=== PATIENT | female | born 1960 | race Caucasian/White ===

== ENCOUNTER 2017-07-17 05:25 | Inpatient (IN) | payer BC ==
[2017-07-15 17:54] VITALS: Ht 160 cm; Wt 60.0 kg
--- NOTE | 2017-07-16 17:39 | RADRPT ---
PROCEDURE: XR Chest. CLINICAL INDICATION: Check PICC line position. TECHNIQUE: Single frontal view. COMPARISON: No prior study is available for comparison. FINDINGS: There is a right arm PICC line with the tip in the cavoatrial junction. There is mild right basilar atelectasis. The lungs are otherwise clear. The heart size is normal. There is no pleural effusion or pneumothorax. Surgical clips are present overlying the lower neck. There is prior anterior fusion with plate and s crews in the lower cervical spine. IMPRESSION: 1. Right arm PICC line tip in satisfactory position. 2. Mild right basilar atelectasis. 3. Prior neck surgery. 4. Otherwise normal chest radiograph. RPTAT: QQ .Asaf Lea MD, MD Date Time Electronically viewed and signed by .Asaf Lea MD, MD on 07/16/2017 17:39 .R/
--- NOTE | 2017-07-16 19:05 | RADRPT ---
PROCEDURE: US guidance for PICC line CLINICAL INDICATION: PICC line placement TECHNIQUE: Multiple real-time images were acquired of the patient's arm utilizing a high resolutio n transducer. This was performed by the PICC line nurse for venous access. COMPARISON: None FINDINGS: Ultrasound guidance for PICC line placement. IMPRESSION: Ultrasound guidance for PICC line placement. RPTAT: AA .Beau Tejada MD, MD Date Time Electronically viewed and signed by .Beau Tejada MD, on 07/16/2017 19:05 .S/
[2017-07-17] VITALS (25 sets, daily range): BP systolic 97–139; BP diastolic 50–77; PULSE 55–88; RESP 12–20
[~2017-07-17] VITALS: Ht 160 cm; Wt 60.0 kg
[~2017-07-17 05:25] MED LIST: BIOT5000 PO; CYAN500T46 PO; DIAZ5TAB4 PO; HYDR-902 PO; LIDOCAINE 1% (MPF) 5 ML VIAL SC ONE; OMEG-144 PO; ONDA4TAB8 PO; PANT40TA3 PO; TEMA15CA6 PO; UBID100C24 PO; VIT1TABL46 PO
[2017-07-17] MEDS ORDERED: LACTATED RINGER'S 1,000 ML IV* SCH ×2 (06:00)
[2017-07-17] MEDS ORDERED: VANCOMYCIN 1 GM in NS 250 ML IVPB SCH (06:00)
[2017-07-17 06:03] LABS: BASOPHILS % 0.3 % (0.0-2.0); EOSINOPHILS # 0.7 10^3/ul (0.0-0.5); EOSINOPHILS % 10.6 % (0.0-7.0); HEMATOCRIT 28.4 % (37.0-47.0); HEMOGLOBIN 8.7 g/dl (12.0-16.0); LYMPHOCYTES # 2.1 10^3/ul (0.8-2.9); LYMPHOCYTES % 31.5 % (15.0-51.0); MEAN CORPUSCULAR HEMOGLOBIN 25.7 pg (29.0-33.0); MEAN CORPUSCULAR HGB CONC 30.6 g/dl (32.0-37.0); MEAN CORPUSCULAR VOLUME 83.8 fl (82.0-101.0); MEAN PLATELET VOLUME 9.4 fl (7.4-10.4); MONOCYTE # 0.8 10^3/ul (0.3-0.9); MONOCYTES % 12.4 % (0.0-11.0); NEUTROPHIL # 2.9 10^3/ul (1.6-7.5); NEUTROPHILS % 44.9 % (39.0-77.0); PLATELET COUNT 289 10^3/UL (140-415); RED BLOOD COUNT 3.39 10^6/ul (4.20-5.40); RED CELL DISTRIBUTION WIDTH 13.5 % (11.5-14.5); WHITE BLOOD COUNT 6.5 10^3/ul (4.8-10.8)
[2017-07-17 06:27] LABS: HOLD TRANSMISSIONS 1
[2017-07-17] MEDS ORDERED: GELATIN SIZE 100 SPONGE ONE (06:30)
[2017-07-17] MEDS ORDERED: BUPIVACAINE 0.25% (MPF) 30 ML INJ ONE (06:30)
[2017-07-17] MEDS ORDERED: POLYMYXIN/BACITRACIN 1L IRRIG ONE (06:30)
[2017-07-17] MEDS ORDERED: THROMBIN 5000 UNIT VIAL ONE (06:30)
[2017-07-17 06:34] LABS: INR 1.02; PROTIME 13.4 Sec (12.2-14.2)
[2017-07-17 06:42] LABS: ALBUMIN 3.9 g/dl (3.3-4.9); ALBUMIN/GLOBULIN RATIO 1.14; TOTAL PROTEIN 7.3 g/dl (6.1-8.1)
[2017-07-17 06:44] LABS: CALCIUM 9.3 mg/dl (8.4-10.2); CREATININE 1.04 mg/dl (0.44-1.00); POTASSIUM 4.2 mmol/L (3.5-5.1)
[2017-07-17 06:44] LABS: ADD UMIC YES; UR ASCORBIC ACID NEGATIVE (NEGATIVE); UR BACTERIA FEW /HPF (NONE SEEN); UR BILIRUBIN (Dip) NEGATIVE (NEGATIVE); UR BLOOD (Dip) NEGATIVE (NEGATIVE); UR CLARITY CLOUDY (CLEAR); UR COLOR YELLOW (YELLOW); UR GLUCOSE (Dip) NEGATIVE (NEGATIVE); UR KETONES (Dip) NEGATIVE (NEGATIVE); UR LEUKOCYTE ESTERASE (Dip) 2+ Leu/ul (NEGATIVE); UR MUCUS FEW /HPF (NONE SEEN); UR NITRITE (Dip) NEGATIVE (NEGATIVE); UR RBC 10 /HPF (0-5); UR SPECIFIC GRAVITY (Dip) 1.023 (1.003-1.030); UR SQUAMOUS EPITHELIAL CELL MODERATE /HPF (FEW); UR TOTAL PROTEIN (Dip) NEGATIVE (NEGATIVE); UR UROBILINOGEN (Dip) NEGATIVE (NEGATIVE)
--- NOTE | 2017-07-17 06:53 | HPN ---
Date/Time of Note Date/Time of Note DATE: 07/17/17 TIME: 06:53 Interval H&P Admission Note Pt. seen H&P reviewed: No system changes MARIANA KERN MD Jul 17, 2017 06:53
[2017-07-17 06:55] LABS: PARTIAL THROMBOPLASTIN TIME 39.4 Sec (25.0-35.0)
[2017-07-17] MEDS ORDERED: MIDAZOLAM 1 MG/ML 2 ML INJ ONE (07:09)
[2017-07-17 08:24] LABS: ADD UMIC NO; UR ASCORBIC ACID NEGATIVE (NEGATIVE); UR BILIRUBIN (Dip) NEGATIVE (NEGATIVE); UR BLOOD (Dip) NEGATIVE (NEGATIVE); UR CLARITY CLEAR (CLEAR); UR COLOR STRAW (YELLOW); UR GLUCOSE (Dip) NEGATIVE (NEGATIVE); UR KETONES (Dip) NEGATIVE (NEGATIVE); UR LEUKOCYTE ESTERASE (Dip) NEGATIVE Leu/ul (NEGATIVE); UR NITRITE (Dip) NEGATIVE (NEGATIVE); UR SPECIFIC GRAVITY (Dip) 1.005 (1.003-1.030); UR TOTAL PROTEIN (Dip) NEGATIVE (NEGATIVE); UR UROBILINOGEN (Dip) NEGATIVE (NEGATIVE)
[2017-07-17] MEDS ORDERED: hydrALAzine 20 MG INJ ONE (08:29)
--- NOTE | 2017-07-17 08:41 | RADRPT ---
PROCEDURE: Lumbar spine x-ray and fluoroscopy CLINICAL INDICATION: Lumbar spine surgical procedure TECHNIQUE: Single cross-table lateral intraoperative x-ray view of the lumbar spine is available for review. Site of service: Inpatient Number of images: 1 Fluoroscopy time: 0 COMPARISON: None available FINDINGS: Surgical markers are seen at the level of T11 and T12 spinous processes. There is anterolisthesis of L4 on L5. Moderate disc height loss is seen at L4-L5 and L5-S1. Lumbar lordosis is relatively prese rved. The vertebral body heights are maintained. Surgical clips are seen in the upper abdomen and pe lvis. IMPRESSION: 1. Intraoperative x-rays for localization during lumbar spinal surgical procedure. RPTAT: BB .Adams Riggs MD, Date Time Electronically viewed and signed by .Adams Riggs MD, on 07/17/2017 08:40 .O/
--- NOTE | 2017-07-17 08:43 | RADRPT ---
PROCEDURE: Lumbar spine x-ray CLINICAL INDICATION: Lumbar spine surgical procedure TECHNIQUE: Single cross-table lateral intraoperative x-ray view of the lumbar spine is available for review. Site of service: Inpatient Number of images: 1 Fluoroscopy time: 0 COMPARISON: 07/17/2017 at 07:52 a.m. FINDINGS: Surgical marker is identified at the level of L1-L2 disc. A second surgical marker is seen at the massey perior aspect of the L2. There is anterolisthesis of L4 on L5. Moderate disc height loss is seen at L4-L5 and L5-S1. Lumbar lordosis is relatively preserved. The vertebral body heights are maintained. Surgical clips are seen in the upper abdomen and pelvis. IMPRESSION: 1. Intraoperative x-rays for localization during lumbar spinal surgical procedure. RPTAT: BB .Adams Riggs MD, Date Time Electronically viewed and signed by .Adams Riggs MD, on 07/17/2017 08:43 .O/
--- NOTE | 2017-07-17 08:46 | RADRPT ---
PROCEDURE: Lumbar spine x-ray CLINICAL INDICATION: Lumbar spine surgical procedure TECHNIQUE: Single cross-table lateral intraoperative x-ray view of the lumbar spine is available for review. Site of service: Inpatient Number of images: 1 Fluoroscopy time: 0 COMPARISON: 07/17/2017 at 7:40 am FINDINGS: Surgical marker is identified at the level of posterior L1-L2 disc There is anterolisthesis of L4 o n L5. Moderate disc height loss is seen at L4-L5 and L5-S1. Lumbar lordosis is relatively preserved. The vertebral body heights are maintained. IMPRESSION: 1. Intraoperative x-rays for localization during lumbar spinal surgical procedure. RPTAT: BB .Adams Riggs MD, Date Time Electronically viewed and signed by .Adams Riggs MD, on 07/17/2017 08:46 .O/
[2017-07-17] MEDS ORDERED: PROPOFOL 20 ML ONE (09:21)
[2017-07-17] MEDS ORDERED: ROCURONIUM 50 MG INJ ONE (09:21)
[2017-07-17] MEDS ORDERED: LIDOCAINE 2% (SDV) 5 ML INJ ONE (09:21)
[2017-07-17] MEDS ORDERED: NEOSTIGMINE 3 MG/3 ML SYRINGE ONE (09:22)
[2017-07-17] MEDS ORDERED: GLYCOPYRROLATE 0.4 MG INJ ONE (09:22)
[2017-07-17] MEDS ORDERED: ONDANSETRON 4 MG INJ ONE (09:27)
[2017-07-17] MEDS ORDERED: HYDROmorphONE (0.2 MG/ML) 10ML SYG IV ONE (09:54)
[2017-07-17] MEDS ORDERED: FENTAnyl 50 MCG/ML VIAL ONE (09:54)
[2017-07-17] MEDS ORDERED: ACETAMINOPHEN 325 MG TAB PO PRN (10:00)
[2017-07-17] MEDS ORDERED: HYDROmorphONE (0.2 MG/ML) 10ML SYG IV PRN ×2 (10:00)
[2017-07-17] MEDS ORDERED: AL HYDROX/MG HYDROX/SIMETH 30 ML CUP PO PRN (10:00)
[2017-07-17] MEDS ORDERED: FENTAnyl 50 MCG/ML VIAL IV PRN ×2 (10:00)
[2017-07-17] MEDS ORDERED: NALOXONE (0.4 MG/ML) INJ IV PRN (10:00)
[2017-07-17] MEDS ORDERED: MIDAZOLAM 1 MG/ML 2 ML INJ IV PRN (10:00)
[2017-07-17] MEDS ORDERED: DIPHENHYDRAMINE 50 MG CAP PO PRN (10:00)
[2017-07-17] MEDS ORDERED: PROCHLORPERAZINE 10 MG TAB PO PRN (10:00)
[2017-07-17] MEDS ORDERED: ONDANSETRON 4 MG INJ IV PRN ×2 (10:00)
[2017-07-17] MEDS ORDERED: DIPHENHYDRAMINE 50 MG INJ IV PRN (10:00)
[2017-07-17] MEDS ORDERED: DIAZEPAM 5 MG/ML SYG IM PRN (10:00)
[2017-07-17] MEDS ORDERED: NACL 0.9% 3 ML SYG IV SCH (10:00)
[2017-07-17] MEDS ORDERED: LABETALOL HCL 20MG INJ IV PRN (10:00)
[2017-07-17] MEDS ORDERED: BETHANECHOL 25 MG TAB PO PRN (10:00)
[2017-07-17] MEDS ORDERED: MEPERIDINE 25 MG INJ IV PRN (10:00)
[2017-07-17] MEDS ORDERED: hydrALAzine 20 MG INJ IV PRN (10:00)
[2017-07-17] MEDS ORDERED: TRIMETHOBENZAMIDE 100 MG/ML VIAL IM PRN (10:00)
[2017-07-17] MEDS ORDERED: METOCLOPRAMIDE 10 MG INJ IV PRN (10:00)
[2017-07-17] MEDS ORDERED: DIPHENHYDRAMINE 50 MG INJ ONE (10:07)
--- NOTE | 2017-07-17 10:14 | SIPON ---
Date/Time of Note Date/Time of Note DATE: 07/17/17 TIME: 10:10 Operative Report Preoperative Diagnosis HNP L1-2 left Postoperative Diagnosis same Operation/Procedure Performed Left hemilaminotomy L1 Microdiscectomy L1-2 left Repair of iatrogenic dural tear L1-2 left Medial facetectomy and foraminotomy L1-2 left Cosmetic wound closure (3cm) Lateral lumbar radiographs (3) Inraoperative nerve monitoring (90min) Surgeon see signature line nutritional assistant Andre Fair MD Anesthesia: general Estimated blood loss: 10 - 50 ml's Transfusion Required none Specimen HNP L1-2 left Grafts/Implants none Complications none MARIANA KERN MD Jul 17, 2017 10:14
--- NOTE | 2017-07-17 10:59 | OPR ---
DATE OF OPERATION: 07/17/2017 PREOPERATIVE DIAGNOSIS: Herniated disk L1 to 2 on the left with inferior extruded disk fragments. POSTOPERATIVE DIAGNOSIS: Herniated disk L1 to 2 on the left with inferior extruded disk fragments. OPERATION AND PROCEDURES: 1. Left hemilaminotomy at L1. 2. Microdiskectomy at L1 to 2 on the left. 3. Medial facetectomy and foraminotomy, L1 to 2 on the left. 4. Repair of iatrogenic dural tear L1 to 2 on the left. 5. Cosmetic wound closure (3 cm). 6. Lateral localized lumbar radiographs (3). 7. Intraoperative nerve monitoring (90 minutes) SURGEON: Yeyo Nelson MD. INTEGRATED MARKETING MANAGER: Tk Fair MD. ANESTHESIA: Endotracheal. ANESTHESIOLOGIST: Estevan Jones MD. ESTIMATED BLOOD LOSS: 30 mL, none replaced. DRAINS: Two medium Hemovac drains employed. COMPLICATIONS: None. PERTINENT HISTORY AND PHYSICAL: This is a 56-year-old female with severe back and left leg pain which has been unrelieved by conservative management. She has undergone a number of diagnostic studies including an MRI of the lumbar spine, which demonstrated herniation of the L1 to 2 disks on the left with inferior extruded disk fragments. Treatment options were discussed with the patient, she elected to proceed with surgery. OPERATIVE FINDINGS AT SURGERY: A small left paracentral herniation of the L1 to 2 disk was confirmed with some disk material below the level of disk space. Baseline intraoperative nerve monitoring revealed a decrease in the L2 potentials bilaterally of 40%. These returned to normal by the end of the surgery. OPERATIVE PROCEDURE: With the patient in supine position after satisfactory induction of general endotracheal anesthesia by Dr. Jones, the patient was turned to the prone kneeling position on the [place] frame. All pressure points were carefully padded. The back was prepped and draped in usual sterile fashion. Athrombic pumps were applied to the legs below the knees to prevent venous stasis during and after the procedure. An indwelling Mack catheter was also placed preoperatively to facilitate bladder drainage during and after the procedure. Two spinal needles were placed next to what was felt to be the L1 and L2 spinous processes, lateral roentgenogram was taken which confirmed anatomic localization. A 3 cm incision then carried out midline over the spinous process of L1 after skin was infiltrated with 0.25% Marcaine without epinephrine for postoperative analgesia. Superficial retractors were placed and hemostasis secured with electrocautery. Throughout the procedure, copious amounts of antibiotic irrigating solution were used to periodically irrigate the wound. The fascia was incised in midline with a hot knife and unilateral subperiosteal dissection carried out at L1 to 2 on the left. Deep retractors were placed and deep hemostasis secured with electrocautery. A second intraoperative radiograph was taken with deep retractor at what was felt to be the L1 to 2 interspace and this was confirmed with second x-ray. A left hemilaminotomy at L1 was then carried out using Leksell rongeur, Kerrison punches and curettes. Ligamentum flavum was excised with sharp dissection. The operating microscope was moved into place. A medial facetectomy and foraminotomy was accomplished using small hand osteotome, mallet, Kerrison punches and curettes. The L2 root was then mobilized medially and protected with D'Errico nerve retractor using microdissection technique. This revealed some disk material below the disk space, which was extracted with pituitary rongeurs and sent to laboratory for pathologic study. A third x-ray was taken with a Alcova instrument at what was felt to be the L1 to 2 disk space level which was confirmed on the x-ray. The epidural hemostasis was secured with bipolar electrocautery at low setting. While the floor of the canal was being explored with a Guanaco dissector, a small tear in the lateral margin of the L2 root sleeve was identified and repaired with a small pledget of Duragen Plus and Adherus dural sealant. A watertight closure was obtained. The wound was then closed in layers over 2 medium Hemovac drains, one below the fascia and one above the fascia using #1 Vicryl [id number] approximating sutures in deep paralumbar musculature and deep fascia of the back, 2-0 Vicryl subcutaneous approximating sutures in subQ tissue and a 4-0 Vicryl subcuticular cosmetic closing suture on the skin. The wound was copiously irrigated with antibacterial irrigating solution prior to wound closure. Dermabond and sterile compressive dressings were applied. Patient having tolerated procedure well, was then turned to the supine position onto her bed and extubated by Dr. Jones. She was transported to the recovery room in satisfactory condition. At the conclusion of the procedure, sponge, instrument and needle counts were all correct. NEED FOR CLAY DRY PRESS HELPER: During this spinal surgical procedure, my assignment desk assistant was used to retract and protect the spinal nerves and dural sac. My assignment desk assistant also employed the suction catheters to evacuate blood from the surgical field to improve visualization of the neural structures. The assignment desk assistant was medically necessary to facilitate the completion of the surgery in a safe and expeditious manner. [facility] regulations, as well as hospital bylaws, preclude the use of non-licensed health care personnel such as operating room technicians, to perform these functions. Throughout the procedure, nerve monitoring was carried out by [employer] including EMG, SSEP and MEP monitoring of the L2, L3 , L4, L5 and S1 nerve roots bilaterally along with spinal cord potentials. These were interpreted by neurologist employed by [employer] system. Dictated By: YEYO NELSON MD TM/NTS Conf#: [id number] DID#: [id number] CC: TK FAIR MD; SHANNA URRUTIA MD;*EndCC* MTDD
[2017-07-17] MEDS ORDERED: HYDROmorphONE 1 MG/ML SYG IM STA (11:48)
[2017-07-17] MEDS ORDERED: HYDROmorphONE 1 MG/ML SYG IV STA (12:00)
[2017-07-17] MEDS ORDERED: HYDROmorphONE 2 MG/ML SYG IV PRN (12:00)
[2017-07-17] MEDS: DEXTROSE 5%-0.45% NACL 1,000 ML IV SCH ×2 (12:11→19:56)
[2017-07-17] MEDS: HYDROmorphONE 0.2 MG/ML PCA IV SCH ×2 (12:36→20:21)
[2017-07-17] MEDS ORDERED: NON-FORMULARY/PATIENT OWN MED (Temazepam* (Restoril*) 15 MG) PO PRN (15:00)
[2017-07-17] MEDS ORDERED: DIAZEPAM 5 MG TAB PO PRN (15:00)
[2017-07-17] MEDS: DIAZEPAM 5 MG TAB PO PRN ×2 (16:37→20:46)
[2017-07-17] MEDS: CEPASTAT LOZENGE MT PRN (16:38)
[2017-07-17] MEDS: VANCOMYCIN 1 GM (PMX) 250 ML IVPB SCH (17:26)
[2017-07-17] MEDS ORDERED: SOD CHLORIDE 0.9% 100 ML ONE (17:50)
--- NOTE | 2017-07-17 20:11 | CONS ---
DATE OF ADMISSION: 07/17/2017 DATE OF CONSULTATION: POSTOPERATIVE INTERNAL MEDICINE CONSULTATION The patient had surgery with Dr. Yeyo Kern 07/17/2017. Consultation requested by Dr. Yeyo Kern for medical evaluation and followup of a 56-year-old woman who just underwent lumbar spine surgery with some medical issues. Thank you, Dr. Kern, for allowing us to participate in the care of this patient. HISTORY OF PRESENT ILLNESS: Annel iTan is a 56-year-old woman. This was her third lumbar spine surgery. She has also had a cervical spine surgery. This particular surgery was for a microdiskectomy, hemilaminectomy and some generalized cleaning at different levels. Hopefully, this will correct many of her issues with her back which have been chronic and long-standing. 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 The patient apparently was quite ill at that particular point in time. She has also had a hysterectomy, oophorectomy and 2 C-sections. Despite it all, however, the patient has been managing relatively well. MEDICATIONS: She is currently taking the following medications: 1. Restoril 15 mg at bedtime. 2. Valium 5 mg p.o. q.8 h. p.r.n. 3. Randalia 10/325 one to 2 every 4 hours as needed. 4. Zofran 4 mg 1 q.8 h. p.r.n. as needed. 5. Protonix 40 mg 1 p.o. daily. ALLERGIES: INCLUDE: 1. SOME MIGRAINE MEDICATIONS. 2. PENICILLIN. 3. IN ADDITION TO IMITREX AND QUETIAPINE. Anyway, those are listed above. SOCIAL HISTORY: The patient is , has 2 children. She does not smoke or drink alcohol other than social basis. Otherwise currently disabled due to her pain. FAMILY HISTORY: Both parents are still living. There is, however, a family history of diabetes, heart, cancer and hypertension. REVIEW OF SYSTEMS HEENT: Does get periodic headaches, both tension and migraine. CARDIORESPIRATORY: Denies any significant chest pain. GASTROINTESTINAL: No melena or hematemesis. GENITOURINARY: No urgency, frequency. GYNECOLOGIC: Postmenopause secondary to total hysterectomy and oophorectomy. MUSCULOSKELETAL: Positive for persistent back pain. NEUROPSYCHIATRIC: Unremarkable. VITAL SIGNS: Postop revealed the following at the time of my examination: Blood pressure 116/58, pulse 82, temperature 97.6, O2 sat 99% with nasal cannula at 2 liters. PHYSICAL EXAMINATION: HEENT: No obvious gross abnormalities. NECK: Revealed scar from prior cervical spine surgery. Pulses were physiologic. LUNGS: Clear. HEART: Revealed a regular rhythm. ABDOMEN: Soft, large scar was noted from her prior small bowel resection and cholecystectomy when she was septic. Bowel sounds were noted and no tenderness being noted. EXTREMITIES: Could not be fully examined due to the patient having coverings over her feet and legs. IMPRESSION: 1. Status post multiple lumbar spine surgeries, most recent being today. 2. Chronic pain syndrome secondary to her back problems. 3. Status post hysterectomy and salpingo-oophorectomy. 4. History of small bowel resection secondary to sepsis and gangrene. 5. General stable health. DISCUSSION: Plan is to follow her along with you. I have taken the liberty to reorder her preop medications that need to be continued while she is in the hospital. The rest have been held and hopefully, the patient will have an uneventful recovery from this particular surgery. Thank you again, Dr. Kern, for allowing us to participate in the care of this patient. We will follow her along with you during her stay at [facility]. Dictated By: SHANNA URRUTIA MD SS/NTS Conf#: [id number] DID#: [id number] CC: YEYO KERN MD;*EndCC* MTDD
[2017-07-17] MEDS: RANITIDINE 150 MG TAB PO SCH (21:00)
[2017-07-17] MEDS: HYDROmorphONE 2 MG/ML SYG IV PRN (21:13)
[2017-07-17] MEDS: ZOLPIDEM 5 MG TAB PO PRN (22:23)
[2017-07-18] MEDS: DEXTROSE 5%-0.45% NACL 1,000 ML IV SCH ×3 (00:02→15:56)
[2017-07-18 00:15] VITALS: BP 130/71; RESP 19
[2017-07-18] MEDS: HYDROmorphONE 2 MG/ML SYG IV PRN ×7 (00:15→23:24)
[2017-07-18] MEDS: DIAZEPAM 5 MG TAB PO PRN ×5 (02:50→22:25)
[2017-07-18] MEDS: HYDROmorphONE 0.2 MG/ML PCA IV SCH ×3 (03:47→18:15)
[2017-07-18] MEDS: VANCOMYCIN 1 GM (PMX) 250 ML IVPB SCH (05:09)
[2017-07-18] MEDS: PANTOPRAZOLE (EC) 40 MG TAB PO SCH (05:09)
[2017-07-18 05:46] LABS: CALCIUM 8.7 mg/dl (8.4-10.2); CREATININE 0.76 mg/dl (0.44-1.00); POTASSIUM 3.7 mmol/L (3.5-5.1)
--- NOTE | 2017-07-18 07:09 | PN ---
Date/Time of Note Date/Time of Note DATE: 07/18/17 TIME: 07:07 Assessment/Plan Lines/Catheters IV Catheter Type (from Nrsg): PICC Line Mack in Place (from Nrsg): Yes Subjective 24 Hr Interval Summary Patient is postop day #1 following a microdiscectomy at L1-2 on the left. She still complaining of a great deal of pain. Her postoperative analgesics are being managed by Dr. Frank Rutledge. Her a.m. lab work is unremarkable. Neurovascular structures were intact distally. Her Hemovac had minimal drainage and was discontinued. The wound was clean and dry and was redressed. She will be mobilized as tolerated by physical therapy. Exam/Review of Systems Vital Signs Vitals Vital Signs Date Time Temp Pulse Resp B/P Pulse Ox O2 Delivery O2 Flow Rate FiO2 07/18/17 05:53 18 07/18/17 00:15 98.5 82 130/71 100 07/17/17 19:30 Nasal Cannula 2.0 Intake and Output 07/17/17 07/17/17 07/18/17 15:00 23:00 07:00 Intake Total 900 ml 1330 ml 1840 ml Output Total 1140 ml 10 ml 2000 ml Balance -240 ml 1320 ml -160 ml Results Result Diagram: 07/17/17 0555 07/18/17 0427 MARIANA KERN MD Jul 18, 2017 07:09
[2017-07-18 07:24] VITALS: BP 131/75; PULSE 91; RESP 14
[2017-07-18 07:31] LABS: HEMATOCRIT 27.7 % (37.0-47.0); HEMOGLOBIN 8.5 g/dl (12.0-16.0)
[2017-07-18] MEDS ORDERED: BETHANECHOL 25 MG TAB PO PRN (08:00)
--- NOTE | 2017-07-18 08:12 | CONS ---
Date/Time of Note Date/Time of Note DATE: 07/18/17 TIME: 08:08 Consult Date/Type/Reason Admit Date/Time Jul 17, 2017 at 05:25 Initial Consult Date 07/17/2017 Type of Consultation: internal medicine Reason for Consultation medical evaluation and f/u Ordering Provider: MARIANA KERN MD Subjective complaining of back pain otherwise relatively stable Objective Vital Signs Date Time Temp Pulse Resp B/P Pulse Ox O2 Delivery O2 Flow Rate FiO2 07/18/17 07:24 98.9 91 14 131/75 98 Nasal Cannula 2.5 Intake and Output 07/17/17 07/17/17 07/18/17 15:00 23:00 07:00 Intake Total 900 ml 1330 ml 1840 ml Output Total 1140 ml 10 ml 2000 ml Balance -240 ml 1320 ml -160 ml Exam vss heent negative lungs clear heart regular rhythm abdomen soft Results/Medications Result Diagram: 07/18/17 0707 07/18/17 0427 Results 24 hrs Laboratory Tests Test 07/18/17 04:27 07/18/17 07:07 Sodium Level 141 Potassium Level 3.7 Chloride Level 104 Carbon Dioxide Level 30 Anion Gap 11 # Blood Urea Nitrogen 5 L Creatinine 0.76 Glucose Level 153 Calcium Level 8.7 Hemoglobin 8.5 L Hematocrit 27.7 L Medications Current Medications Dextrose/Sodium Chloride (D5-1/2ns) 1,000 ml @ 100 mls/hr Q10H IV Last administered on 07/18/17 00:02; Admin Dose 100 MLS/HR; Start 07/17/17 at 09: 56 Zolpidem Tartrate (Ambien) 5 mg HS PRN PO INSOMNIA Last administered on 22:23; Admin Dose 5 MG; Start 07/17/17 at 10:00 Prochlorperazine (Compazine) 10 mg Q4H PRN PO NAUSEA AND/OR VOMITING; Start at 10:00 Trimethobenzamide HCl (Tigan) 200 mg Q4H PRN IM NAUSEA AND/OR VOMITING; Start 07/17/17 at 10:00 Ondansetron HCl (Zofran Inj) 4 mg Q6H PRN IV NAUSEA AND/OR VOMITING; Start at 10:00 Al Hydrox/Mg Hydrox/Simethicone (Mag-Al Plus) 15 ml Q4H PRN PO CONSTIPATION; Start 07/17/17 at 10:00 Docusate Sodium (Colace) 100 mg BID PO ; Start 07/18/17 at 09:00 Acetaminophen (Tylenol Tab) 650 mg Q4H PRN PO TEMP GREATER THAN 101F OR OREILLY; Start 07/17/17 at 10:00 Ascorbic Acid (Vitamin C) 1,000 mg BID PO ; Start 07/18/17 at 09:00 Ferrous Sulfate (Ferrous Sulfate (Ec)) 325 mg TID PO ; Start 07/18/17 at 09:00 Ranitidine HCl (Zantac) 150 mg BID PO ; Start 07/17/17 at 21:00 Diazepam (Valium) 5 mg Q4H PRN PO MUSCLE SPASMS Last administered on 02:50; Admin Dose 5 MG; Start 07/17/17 at 10:00 Diazepam (Valium) 5 mg Q4H PRN IM MUSCLE SPASMS; Start 07/17/17 at 10:00 Phenol (Cepastat Lozenge) 1 lozenge PRN PRN MT SORE THROAT Last administered on 07/17/17 16:38; Admin Dose 1 LOZENGE; Start 07/17/17 at 10:00 Diphenhydramine HCl (Benadryl) 50 mg Q6H PRN PO PRURITUS; Start 07/17/17 at 10 :00 Naloxone HCl (Narcan) 0.2 mg Q2M PRN IV RR 8 BREATHS/MIN OR LESS; Start at 10:00 Hydromorphone HCl (Dilaudid MARKETING ANALYTICS ANALYST) MG/HR CONTINUOUS RATE ... Q4PCA IV Last administered on 07/18/17 03:47; Admin Dose 6 MG; Start 07/17/17 at 12:00; Stop 07/18/17 at 13:00 Hydromorphone HCl (Dilaudid MARKETING ANALYTICS ANALYST) MG/HR CONTINUOUS RATE ... Q4PCA IV ; Start at 13:00 Diazepam (Valium) 5 mg Q8 PRN PO ANXIETY; Start 07/17/17 at 15:00 Pantoprazole (Protonix Tab) 40 mg DAILY@06 PO Last administered on 07/18/17 05:09; Admin Dose 40 MG; Start 07/18/17 at 06:00 Vitamin B Complex/ Vitamin C (Berocca) 1 cap DAILY PO ; Start 07/18/17 at 09:00 IV Flush (NS 10 ml) 10 ml PRN PRN IV IV PROTOCOL; Start 07/17/17 at 18:00 Hydromorphone HCl (Dilaudid) 2 mg Q3 PRN IV SEVERE PAIN LEVEL 7-10 Last administered on 07/18/17t 07:04; Admin Dose 2 MG; Start 07/17/17 at 21:00 Bethanechol Chloride (Urecholine) 25 mg PRN PRN PO UNABLE TO VOID; Start 07/18 at 08:00 Assessment/Plan Chief Complaint/Hosp Course post op pain primarily back pain otherwise relatively stable Problems: Additional Assessment/Plan activity management per dr kern will follow with you thank you SHANNA Zhang MD Jul 18, 2017 08:12
[2017-07-18] MEDS: VITAMIN B COMPLEX/VIT C CAP PO SCH (08:36)
[2017-07-18] MEDS: FERROUS SULFATE (EC) 325 MG TAB PO SCH ×3 (08:52→21:15)
[2017-07-18] MEDS: ASCORBIC ACID 500 MG TAB PO SCH ×2 (08:52→21:15)
[2017-07-18] MEDS: DOCUSATE SODIUM 100 MG CAP PO SCH ×2 (08:52→21:15)
[2017-07-18] MEDS: RANITIDINE 150 MG TAB PO SCH ×2 (08:53→21:15)
[2017-07-18 11:34] LABS: ADD UMIC YES; UR ASCORBIC ACID NEGATIVE (NEGATIVE); UR BILIRUBIN (Dip) NEGATIVE (NEGATIVE); UR BLOOD (Dip) NEGATIVE (NEGATIVE); UR CLARITY CLEAR (CLEAR); UR COLOR COLORLESS (YELLOW); UR GLUCOSE (Dip) NEGATIVE (NEGATIVE); UR KETONES (Dip) NEGATIVE (NEGATIVE); UR LEUKOCYTE ESTERASE (Dip) TRACE Leu/ul (NEGATIVE); UR NITRITE (Dip) NEGATIVE (NEGATIVE); UR RBC 5 /HPF (0-5); UR SPECIFIC GRAVITY (Dip) 1.002 (1.003-1.030); UR TOTAL PROTEIN (Dip) NEGATIVE (NEGATIVE); UR UROBILINOGEN (Dip) NEGATIVE (NEGATIVE)
[2017-07-18 15:31] VITALS: BP 129/62; RESP 19
[2017-07-18] MEDS: CEPASTAT LOZENGE MT PRN (16:37)
[2017-07-18 19:30] VITALS: BP 116/62; RESP 18
[2017-07-18 23:47] VITALS: BP 104/59; RESP 18
[2017-07-19] VITALS (14 sets, daily range): BP systolic 110–163; BP diastolic 57–83; PULSE 70–86; RESP 14–20
[2017-07-19] MEDS: ZOLPIDEM 5 MG TAB PO PRN (00:32)
[2017-07-19] MEDS: DEXTROSE 5%-0.45% NACL 1,000 ML IV SCH ×3 (01:56→21:56)
[2017-07-19] MEDS: HYDROmorphONE 2 MG/ML SYG IV PRN ×5 (02:36→20:05)
[2017-07-19 05:16] LABS: BASOPHILS % 0.2 % (0.0-2.0); EOSINOPHILS # 0.4 10^3/ul (0.0-0.5); EOSINOPHILS % 7.2 % (0.0-7.0); HEMATOCRIT 24.2 % (37.0-47.0); HEMOGLOBIN 7.4 g/dl (12.0-16.0); LYMPHOCYTES # 1.3 10^3/ul (0.8-2.9); LYMPHOCYTES % 22.7 % (15.0-51.0); MEAN CORPUSCULAR HEMOGLOBIN 26.2 pg (29.0-33.0); MEAN CORPUSCULAR HGB CONC 30.6 g/dl (32.0-37.0); MEAN CORPUSCULAR VOLUME 85.8 fl (82.0-101.0); MEAN PLATELET VOLUME 9.9 fl (7.4-10.4); MONOCYTE # 0.8 10^3/ul (0.3-0.9); NEUTROPHILS % 54.5 % (39.0-77.0); PLATELET COUNT 206 10^3/UL (140-415); RED BLOOD COUNT 2.82 10^6/ul (4.20-5.40); RED CELL DISTRIBUTION WIDTH 13.8 % (11.5-14.5); WHITE BLOOD COUNT 5.5 10^3/ul (4.8-10.8)
[2017-07-19 05:34] LABS: IRON 36 ug/dl (35-150)
[2017-07-19 05:44] LABS: TOTAL IRON BINDING CAPACITY 232 ug/dl (241-421)
[2017-07-19 05:45] LABS: CALCIUM 8.9 mg/dl (8.4-10.2); CREATININE 0.66 mg/dl (0.44-1.00); POTASSIUM 3.6 mmol/L (3.5-5.1)
[2017-07-19] MEDS: PANTOPRAZOLE (EC) 40 MG TAB PO SCH (05:54)
--- NOTE | 2017-07-19 07:02 | PN ---
Date/Time of Note Date/Time of Note DATE: 07/19/17 TIME: 06:56 Assessment/Plan Lines/Catheters IV Catheter Type (from Nrsg): PICC Line Mack in Place (from Nrsg): No Subjective 24 Hr Interval Summary Patient is postop day #2 following a microdiscectomy at L1-2 on the left. She has some left groin and leg pain. Neurovascular structures are intact distally. She is on IV Dilaudid for pain per Dr. Rutledge. She is made slow progress with physical therapy thus far. She will be seen by physical therapy again today and possibly discharge if cleared by them. I will ask Dr. Rutledge to transition her to oral meds if possible today. Exam/Review of Systems Vital Signs Vitals Vital Signs Date Time Temp Pulse Resp B/P Pulse Ox O2 Delivery O2 Flow Rate FiO2 07/18/17 23:47 98.4 80 18 104/59 98 07/18/17 20:00 Nasal Cannula 2.0 Intake and Output 07/18/17 07/18/17 07/19/17 15:00 23:00 07:00 Intake Total 610 ml 700 ml 650 ml Output Total 2200 ml 1850 ml Balance 610 ml -1500 ml -1200 ml Results Result Diagram: 07/19/17 0432 07/19/17 0432 MARIANA KERN MD Jul 19, 2017 07:02
[2017-07-19] MEDS: DIAZEPAM 5 MG TAB PO PRN ×3 (07:49→17:24)
--- NOTE | 2017-07-19 08:09 | CONS ---
Date/Time of Note Date/Time of Note DATE: 07/19/17 TIME: 08:04 Consult Date/Type/Reason Admit Date/Time Jul 17, 2017 at 05:25 Initial Consult Date 07/17/2017 Type of Consultation: internal medicine Reason for Consultation medical f/u and management Ordering Provider: MARIANA KERN MD Subjective feels better than yesterday feels anemic usually needs transfusions post op Objective Vital Signs Date Time Temp Pulse Resp B/P Pulse Ox O2 Delivery O2 Flow Rate FiO2 07/19/17 04:00 18 07/18/17 23:47 98.4 80 104/59 98 07/18/17 20:00 Nasal Cannula 2.0 Intake and Output 07/18/17 07/18/17 07/19/17 15:00 23:00 07:00 Intake Total 610 ml 700 ml 650 ml Output Total 2200 ml 1850 ml Balance 610 ml -1500 ml -1200 ml Exam vss stable heent negative chest clear heart regular rhythm abdomen soft Results/Medications Result Diagram: 07/19/17 0432 07/19/17 0432 Results 24 hrs Laboratory Tests Test 07/18/17 10:03 07/19/17 04:32 07/19/17 04:33 Urine Color COLORLESS Urine Clarity CLEAR Urine pH 7.0 Urine Specific [place] 1.002 L Urine Ketones NEGATIVE Urine Nitrite NEGATIVE Urine Bilirubin NEGATIVE Urine Urobilinogen NEGATIVE Urine Leukocyte Esterase TRACE A Urine Microscopic RBC 5 Urine Microscopic WBC 3 Urine Hemoglobin NEGATIVE Urine Glucose NEGATIVE Urine Total Protein NEGATIVE White Blood Count 5.5 Red Blood Count 2.82 L Hemoglobin 7.4 L Hematocrit 24.2 L Mean Corpuscular Volume 85.8 Mean Corpuscular Hemoglobin 26.2 L Mean Corpuscular Hemoglobin Concent 30.6 L Red Cell Distribution Width 13.8 Platelet Count 206 # Mean Platelet Volume 9.9 Neutrophils % 54.5 Lymphocytes % 22.7 Monocytes % 15.0 H Eosinophils % 7.2 H Basophils % 0.2 Nucleated Red Blood Cells % 0.0 Neutrophils # 3.0 Lymphocytes # 1.3 Monocytes # 0.8 Eosinophils # 0.4 Basophils # 0.0 Nucleated Red Blood Cells # 0.0 Sodium Level 142 Potassium Level 3.6 Chloride Level 104 Carbon Dioxide Level 30 Anion Gap 12 Blood Urea Nitrogen 3 L Creatinine 0.66 Glucose Level 117 Calcium Level 8.9 Iron Level 36 Total Iron Binding Capacity 232 L Percent Iron Saturation 16 L Medications Current Medications Dextrose/Sodium Chloride (D5-1/2ns) 1,000 ml @ 100 mls/hr Q10H IV Last administered on 07/18/17 00:02; Admin Dose 100 MLS/HR; Start 07/17/17 at 09: 56 Zolpidem Tartrate (Ambien) 5 mg HS PRN PO INSOMNIA Last administered on 00:32; Admin Dose 5 MG; Start 07/17/17 at 10:00 Prochlorperazine (Compazine) 10 mg Q4H PRN PO NAUSEA AND/OR VOMITING; Start at 10:00 Trimethobenzamide HCl (Tigan) 200 mg Q4H PRN IM NAUSEA AND/OR VOMITING; Start 07/17/17 at 10:00 Ondansetron HCl (Zofran Inj) 4 mg Q6H PRN IV NAUSEA AND/OR VOMITING; Start at 10:00 Al Hydrox/Mg Hydrox/Simethicone (Mag-Al Plus) 15 ml Q4H PRN PO CONSTIPATION; Start 07/17/17 at 10:00 Docusate Sodium (Colace) 100 mg BID PO Last administered on 07/18/17 21:15; Admin Dose 100 MG; Start 07/18/17 at 09:00 Acetaminophen (Tylenol Tab) 650 mg Q4H PRN PO TEMP GREATER THAN 101F OR OREILLY; Start 07/17/17 at 10:00 Ascorbic Acid (Vitamin C) 1,000 mg BID PO Last administered on 07/18/17 21:15 ; Admin Dose 1,000 MG; Start 07/18/17 at 09:00 Ferrous Sulfate (Ferrous Sulfate (Ec)) 325 mg TID PO Last administered on 07/18 21:15; Admin Dose 325 MG; Start 07/18/17 at 09:00 Ranitidine HCl (Zantac) 150 mg BID PO Last administered on 07/18/17 21:15; Admin Dose 150 MG; Start 07/17/17 at 21:00 Diazepam (Valium) 5 mg Q4H PRN PO MUSCLE SPASMS Last administered on 07/19/17 07:49; Admin Dose 5 MG; Start 07/17/17 at 10:00 Diazepam (Valium) 5 mg Q4H PRN IM MUSCLE SPASMS; Start 07/17/17 at 10:00 Phenol (Cepastat Lozenge) 1 lozenge PRN PRN MT SORE THROAT Last administered on 07/18/17 16:37; Admin Dose 1 LOZENGE; Start 07/17/17 at 10:00 Diphenhydramine HCl (Benadryl) 50 mg Q6H PRN PO PRURITUS; Start 07/17/17 at 10 :00 Naloxone HCl (Narcan) 0.2 mg Q2M PRN IV RR 8 BREATHS/MIN OR LESS; Start at 10:00 Hydromorphone HCl (Dilaudid LEAD ASSEMBLER) MG/HR CONTINUOUS RATE ... Q4PCA IV Last administered on 07/18/17 18:15; Admin Dose 6 MG; Start 07/18/17 at 13:00 Diazepam (Valium) 5 mg Q8 PRN PO ANXIETY; Start 07/17/17 at 15:00 Pantoprazole (Protonix Tab) 40 mg DAILY@06 PO Last administered on 07/19/17 05 :54; Admin Dose 40 MG; Start 07/18/17 at 06:00 Vitamin B Complex/ Vitamin C (Berocca) 1 cap DAILY PO Last administered on 08:36; Admin Dose 1 CAP; Start 07/18/17 at 09:00 IV Flush (NS 10 ml) 10 ml PRN PRN IV IV PROTOCOL; Start 07/17/17 at 18:00 Hydromorphone HCl (Dilaudid) 2 mg Q3 PRN IV SEVERE PAIN LEVEL 7-10 Last administered on 07/19/17 05:54; Admin Dose 2 MG; Start 07/17/17 at 21:00 Bethanechol Chloride (Urecholine) 25 mg PRN PRN PO UNABLE TO VOID Last administered on 07/18/17 11:18; Admin Dose 25 MG; Start 07/18/17 at 08:00 Assessment/Plan Chief Complaint/Hosp Course post op pain primarily back pain otherwise relatively stable Problems: Additional Assessment/Plan plan transfuse 2 units packed cell continue rest of rx per SHANNA Magana MD Jul 19, 2017 08:09
[2017-07-19] MEDS: RANITIDINE 150 MG TAB PO SCH ×2 (08:17→20:06)
[2017-07-19] MEDS: DOCUSATE SODIUM 100 MG CAP PO SCH ×2 (08:17→20:05)
[2017-07-19] MEDS: FERROUS SULFATE (EC) 325 MG TAB PO SCH ×3 (08:18→20:06)
[2017-07-19] MEDS: VITAMIN B COMPLEX/VIT C CAP PO SCH (08:18)
[2017-07-19] MEDS: ASCORBIC ACID 500 MG TAB PO SCH ×2 (08:18→20:06)
[2017-07-19] MEDS: HYDROmorphONE 0.2 MG/ML PCA IV SCH (08:28)
[2017-07-19] MEDS ORDERED: morphine (ER) 15 MG TAB PO PRN (12:30)
[2017-07-19] MEDS ORDERED: DIPHENHYDRAMINE 50 MG INJ IV ONE (12:30)
[2017-07-19] MEDS: morphine LIQ (10 MG/5 ML) CUP PO PRN (13:45)
--- NOTE | 2017-07-19 14:34 | CONS ---
Date/Time of Note Date/Time of Note DATE: 07/19/17 TIME: 14:30 Consultation Date/Type/Reason Admit Date/Time Jul 17, 2017 at 05:25 Initial Consult Date Pt seen, known to me with post laminectomy synd. now s/p discectomy for l le pain. Asked to write for outpt pain meds. Plan: start MSIR 15mg b-tid prn. f/u w me as opt in 4 wks. ALVERTO Rutledge MD MPH Type of Consultation: internal medicine Referring Provider: MARIANA KERN MD Exam/Review of Systems Vital Signs Vitals Vital Signs Date Time Temp Pulse Resp B/P Pulse Ox O2 Delivery O2 Flow Rate FiO2 07/19/17 13:20 98.3 85 14 119/60 100 Nasal Cannula 2.0 Intake and Output 07/18/17 07/18/17 07/19/17 15:00 23:00 07:00 Intake Total 610 ml 700 ml 650 ml Output Total 2200 ml 1850 ml Balance 610 ml -1500 ml -1200 ml Results Result Diagram: 07/19/17 0432 07/19/17 0432 Results 24 hrs Laboratory Tests Test 07/19/17 04:32 07/19/17 04:33 White Blood Count 5.5 Red Blood Count 2.82 L Hemoglobin 7.4 L Hematocrit 24.2 L Mean Corpuscular Volume 85.8 Mean Corpuscular Hemoglobin 26.2 L Mean Corpuscular Hemoglobin Concent 30.6 L Red Cell Distribution Width 13.8 Platelet Count 206 # Mean Platelet Volume 9.9 Neutrophils % 54.5 Lymphocytes % 22.7 Monocytes % 15.0 H Eosinophils % 7.2 H Basophils % 0.2 Nucleated Red Blood Cells % 0.0 Neutrophils # 3.0 Lymphocytes # 1.3 Monocytes # 0.8 Eosinophils # 0.4 Basophils # 0.0 Nucleated Red Blood Cells # 0.0 Sodium Level 142 Potassium Level 3.6 Chloride Level 104 Carbon Dioxide Level 30 Anion Gap 12 Blood Urea Nitrogen 3 L Creatinine 0.66 Glucose Level 117 Calcium Level 8.9 Iron Level 36 Total Iron Binding Capacity 232 L Percent Iron Saturation 16 L Medications Medications Current Medications Dextrose/Sodium Chloride (D5-1/2ns) 1,000 ml @ 100 mls/hr Q10H IV Last administered on 07/18/17t 00:02; Admin Dose 100 MLS/HR; Start 07/17/17 at 09: 56 Zolpidem Tartrate (Ambien) 5 mg HS PRN PO INSOMNIA Last administered on 00:32; Admin Dose 5 MG; Start 07/17/17 at 10:00 Prochlorperazine (Compazine) 10 mg Q4H PRN PO NAUSEA AND/OR VOMITING; Start at 10:00 Trimethobenzamide HCl (Tigan) 200 mg Q4H PRN IM NAUSEA AND/OR VOMITING; Start 07/17/17 at 10:00 Ondansetron HCl (Zofran Inj) 4 mg Q6H PRN IV NAUSEA AND/OR VOMITING; Start at 10:00 Al Hydrox/Mg Hydrox/Simethicone (Mag-Al Plus) 15 ml Q4H PRN PO CONSTIPATION; Start 07/17/17 at 10:00 Docusate Sodium (Colace) 100 mg BID PO Last administered on 07/19/17 08:17; Admin Dose 100 MG; Start 07/18/17 at 09:00 Acetaminophen (Tylenol Tab) 650 mg Q4H PRN PO TEMP GREATER THAN 101F OR OREILLY; Start 07/17/17 at 10:00 Ascorbic Acid (Vitamin C) 1,000 mg BID PO Last administered on 07/19/17 08:18 ; Admin Dose 1,000 MG; Start 07/18/17 at 09:00 Ferrous Sulfate (Ferrous Sulfate (Ec)) 325 mg TID PO Last administered on 13:03; Admin Dose 325 MG; Start 07/18/17 at 09:00 Ranitidine HCl (Zantac) 150 mg BID PO Last administered on 07/19/17 08:17; Admin Dose 150 MG; Start 07/17/17 at 21:00 Diazepam (Valium) 5 mg Q4H PRN PO MUSCLE SPASMS Last administered on 07/19/17 11:53; Admin Dose 5 MG; Start 07/17/17 at 10:00 Diazepam (Valium) 5 mg Q4H PRN IM MUSCLE SPASMS; Start 07/17/17 at 10:00 Phenol (Cepastat Lozenge) 1 lozenge PRN PRN MT SORE THROAT Last administered on 07/18/17 16:37; Admin Dose 1 LOZENGE; Start 07/17/17 at 10:00 Diphenhydramine HCl (Benadryl) 50 mg Q6H PRN PO PRURITUS; Start 07/17/17 at 10 :00 Naloxone HCl (Narcan) 0.2 mg Q2M PRN IV RR 8 BREATHS/MIN OR LESS; Start at 10:00 Diazepam (Valium) 5 mg Q8 PRN PO ANXIETY; Start 07/17/17 at 15:00 Pantoprazole (Protonix Tab) 40 mg DAILY@06 PO Last administered on 07/19/17 05 :54; Admin Dose 40 MG; Start 07/18/17 at 06:00 Vitamin B Complex/ Vitamin C (Berocca) 1 cap DAILY PO Last administered on 07/19 08:18; Admin Dose 1 CAP; Start 07/18/17 at 09:00 IV Flush (NS 10 ml) 10 ml PRN PRN IV IV PROTOCOL; Start 07/17/17 at 18:00 Hydromorphone HCl (Dilaudid) 2 mg Q3 PRN IV SEVERE PAIN LEVEL 7-10 Last administered on 07/19/17 09:24; Admin Dose 2 MG; Start 07/17/17 at 21:00 Bethanechol Chloride (Urecholine) 25 mg PRN PRN PO UNABLE TO VOID Last administered on 07/18/17 11:18; Admin Dose 25 MG; Start 07/18/17 at 08:00 Morphine Sulfate (morphine) 15 mg Q4H PRN PO PAIN LEVEL 6-10 Last administered on 07/19/17 13:45; Admin Dose 15 MG; Start 07/19/17 at 13:00 JW RUTLEDGE MD Jul 19, 2017 14:34
[2017-07-20 00:30] VITALS: BP 117/55; PULSE 76; RESP 18
[2017-07-20] MEDS: morphine LIQ (10 MG/5 ML) CUP PO PRN ×3 (00:31→13:08)
[2017-07-20 01:30] VITALS: BP 113/55; PULSE 78; RESP 18
[2017-07-20] MEDS: DIAZEPAM 5 MG TAB PO PRN ×3 (02:21→12:27)
[2017-07-20 02:30] VITALS: BP 111/62; PULSE 77; RESP 18
[2017-07-20] MEDS: HYDROmorphONE 2 MG/ML SYG IV PRN (04:51)
[2017-07-20 06:08] LABS: BASOPHILS % 0.2 % (0.0-2.0); EOSINOPHILS # 0.7 10^3/ul (0.0-0.5); EOSINOPHILS % 6.5 % (0.0-7.0); HEMATOCRIT 28.2 % (37.0-47.0); HEMOGLOBIN 9.1 g/dl (12.0-16.0); LYMPHOCYTES # 2.2 10^3/ul (0.8-2.9); LYMPHOCYTES % 20.4 % (15.0-51.0); MEAN CORPUSCULAR HEMOGLOBIN 26.9 pg (29.0-33.0); MEAN CORPUSCULAR HGB CONC 32.3 g/dl (32.0-37.0); MEAN CORPUSCULAR VOLUME 83.4 fl (82.0-101.0); MEAN PLATELET VOLUME 9.9 fl (7.4-10.4); MONOCYTE # 1.4 10^3/ul (0.3-0.9); NEUTROPHIL # 6.3 10^3/ul (1.6-7.5); NEUTROPHILS % 59.4 % (39.0-77.0); PLATELET COUNT 246 10^3/UL (140-415); RED BLOOD COUNT 3.38 10^6/ul (4.20-5.40); RED CELL DISTRIBUTION WIDTH 14.3 % (11.5-14.5); WHITE BLOOD COUNT 10.6 10^3/ul (4.8-10.8)
[2017-07-20 06:27] LABS: CALCIUM 9.6 mg/dl (8.4-10.2); CREATININE 0.71 mg/dl (0.44-1.00); POTASSIUM 3.6 mmol/L (3.5-5.1)
[2017-07-20] MEDS: PANTOPRAZOLE (EC) 40 MG TAB PO SCH (06:46)
[2017-07-20] MEDS: DEXTROSE 5%-0.45% NACL 1,000 ML IV SCH ×2 (07:56→13:04)
[2017-07-20 08:00] VITALS: BP 129/74; RESP 17
[2017-07-20] MEDS: DOCUSATE SODIUM 100 MG CAP PO SCH (09:03)
[2017-07-20] MEDS: VITAMIN B COMPLEX/VIT C CAP PO SCH (09:03)
[2017-07-20] MEDS: FERROUS SULFATE (EC) 325 MG TAB PO SCH ×2 (09:04→12:21)
[2017-07-20] MEDS: ASCORBIC ACID 500 MG TAB PO SCH (09:04)
[2017-07-20] MEDS: RANITIDINE 150 MG TAB PO SCH (09:04)
--- NOTE | 2017-07-20 09:05 | PN ---
Date/Time of Note Date/Time of Note DATE: 07/20/17 TIME: 09:04 Assessment/Plan Lines/Catheters IV Catheter Type (from Nrsg): PICC Line Mack in Place (from Nrsg): No Subjective 24 Hr Interval Summary Patient is postop day #3 following a microdiscectomy at L1-2 on the left. He still complaining of back and left leg pain but her symptoms are steadily improving. She is now on oral analgesics. Neurovascular structures are intact distally. Physical therapy anticipate she can be discharged later today. Her a.m. labs demonstrate her H&H has improved significantly following the transfusion. She was given strict discharge precautions and instructions as well as follow-up arrangements. Her outpatient analgesics will continue to be managed by Exam/Review of Systems Vital Signs Vitals Vital Signs Date Time Temp Pulse Resp B/P Pulse Ox O2 Delivery O2 Flow Rate FiO2 07/20/17 02:30 98.4 77 18 111/62 98 Nasal Cannula 07/19/17 19:30 2.0 Intake and Output 07/19/17 07/19/17 07/20/17 15:00 23:00 07:00 Intake Total 1130 ml 830 ml Output Total 955 ml 800 ml Balance 175 ml 30 ml Results Result Diagram: 07/20/17 0509 07/20/17 0508 MARIANA KERN MD Jul 20, 2017 09:05
[2017-07-20] MEDS ORDERED: NITROFURANTOIN (SR) 100 MG CAP PO SCH (09:30)
--- NOTE | 2017-07-20 09:35 | DS ---
Date/Time of Note Date/Time of Note DATE: 07/20/17 TIME: 09:31 Discharge Summary Admission/Discharge Info Admit Date/Time Jul 17, 2017 at 05:25 Discharge Date/Time July 20, 2017 Discharge Diagnosis Lumbar disc disease with significant left-sided radiculopathy; migraine syndrome ; anxiety disorder; rheumatoid arthritis; E. coli UTI; anemia Patient Condition: Fair Consults Internal medicine-Dr. Ny; pain management consult-Dr. Rutledge Procedures OPERATION AND PROCEDURES: 1. Left hemilaminotomy at L1. 2. Microdiskectomy at L1 to 2 on the left. 3. Medial facetectomy and foraminotomy, L1 to 2 on the left. 4. Repair of iatrogenic dural tear L1 to 2 on the left. 5. Cosmetic wound closure (3 cm). 6. Lateral localized lumbar radiographs (3). 7. Intraoperative nerve monitoring (90 minutes) SURGEON: Yeyo Nelson MD. Transfusion Hx of Present Illness POSTOPERATIVE INTERNAL MEDICINE CONSULTATION The patient had surgery with Dr. Yeyo Nelson 07/17/2017. Consultation requested by Dr. Yeyo Nelson for medical evaluation and followup of a 56-year-old woman who just underwent lumbar spine surgery with some medical issues. Thank you, Dr. Nelson, for allowing us to participate in the care of this patient. HISTORY OF PRESENT ILLNESS: Annel Tian is a 56-year-old woman. This was her third lumbar spine surgery. She has also had a cervical spine surgery. This particular surgery was for a microdiskectomy, hemilaminectomy and some generalized cleaning at different levels. Hopefully, this will correct many of her issues with her back which have been chronic and long-standing. 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 The patient apparently was quite ill at that particular point in time. She has also had a hysterectomy, oophorectomy and 2 C-sections. Despite it all, however, the patient has been managing relatively well. Hospital Course Charming middle-aged female with a prior history of significant spinal arthritis. She is status post neck surgery and status post 2 prior back surgeries. She has had lumbar surgery at this visit and still has some postoperative radicular symptoms to the left leg. However she is at a point where she is now able carefully to get around. She is now stable for discharge. She has been seen by Dr. Rutledge in pain management consultation who has written for her pain medications. Home Meds Reported Medications [place]-3/Dha/Epa/Fish Oil (Fish Oil 500 mg Softgel) 1 Each Capsule, 1 EACH PO DAILY, CAP 07/16/17 Vitamin B Complex* (Vitamin B Complex*) 1 Each Tablet, 1 TAB PO DAILY, TAB 07/16/17 Ubidecarenone (Coq-10) 100 Mg Capsule, 400 MG PO DAILY, CAP 07/16/17 Cyanocobalamin* (Vitamin B12*) 500 Mcg Tab, 1500 MCG PO DAILY, TAB 07/16/17 Biotin (Biotin) 5,000 Mcg Tab.rapdis, 5000 MCG PO DAILY, CAP 07/16/17 Pantoprazole* (Protonix*) 40 Mg Tablet.dr, 40 MG PO DAILY, TAB 07/16/17 Ondansetron Hcl* (Zofran*) 4 Mg Tablet, 4 MG PO Q8 Y for NAUSEA AND OR VOMITING , TAB 07/16/17 Hydrocodone/Acetaminophen ([place] 10-325 Tablet) 1 Each Tablet, 1-2 EACH PO Q4 Y for PAIN, TAB 07/16/17 Diazepam* (Diazepam*) 5 Mg Tablet, 5 MG PO Q8 Y for ANXIETY, TAB 07/16/17 Temazepam* (Restoril*) 15 Mg Capsule, 15 MG PO HS Y for INSOMNIA, CAP 07/16/17 Discontinued Reported Medications Hydromorphone Hcl/Pf (Dilaudid 4 Mg/Ml Ampul) 4 Mg/Ml Ampul, 6 MG IJ PRN Q3-4 03/12/11 Infliximab (Remicade) 100 Mg Soln, 400 MG IV EVERY 6 WEEKS 03/12/11 Doxepin Hcl* (Doxepin Hcl*) 10 Mg Capsule, 10 MG PO PRN 03/12/11 Clonazepam* (Clonazepam*) 1 Mg Tablet, 1 MG PO DAILY 03/12/11 Diazepam* (Diazepam*) 10 Mg Tablet, 10 MG PO PRN Q6 03/12/11 Methotrexate Sodium (Methotrexate) 25 Mg/Ml Vial, 25 MG IJ EVERY Saturday03/12/11 Zolpidem Tartrate* (Zolpidem Tartrate*) 10 Mg Tablet, 10 MG PO HS 03/12/11 Hydromorphone Hcl (Dilaudid) 8 Mg Tablet, 8 MG PO PRN Q4 03/12/11 Carisoprodol* (Soma*) 350 Mg Tablet, 350 MG PO PRN 03/12/11 Ondansetron Hcl* (Zofran*) 4 Mg Tablet, 4 MG PO PRN 03/12/11 Oxycodone Hcl* (Oxycontin*) 10 Mg Tab.sr.12h, 10 MG PO Q12 03/12/11 Verapamil Hcl (Verapamil Hcl) 80 Mg Tablet, 80 MG PO TID 03/12/11 Hydroxychloroquine Sulfate* (Plaquenil*) 200 Mg Tab, 200 MG PO BID 03/12/11 Lansoprazole* (Prevacid*) 30 Mg Capsule.dr, 30 MG PO DAILY 03/12/11 Duloxetine Hcl* (Cymbalta*) 60 Mg Capsule.dr, 200 MG PO DAILY 03/12/11 Tramadol Hcl* (Ultram* ER) 200 Mg Tab.sr.24h, 200 MG PO DAILY 03/12/11 Estrogens Conjugated* (Premarin*) 0.9 Mg Tablet, 0.9 MG PO DAILY 03/12/11 Hydrocodone Bit-Acetaminophen* ([place]*) 1 Tab Tablet, 1 TAB PO Q4 03/12/11 Baclofen* (Baclofen*) 10 Mg Tablet, 10 MG PO TID 03/12/11 Follow-up Plan Dr. Nelson in [address] Rutledge in 2 weeks Primary Care Provider Not On Staff Doctor Time spent on discharge: > 30 minutes Pending Labs Laboratory Tests Test 07/20/17 05:08 07/20/17 05:09 07/20/17 07:28 Sodium Level 141mmol/L (135-144) Potassium Level 3.6mmol/L (3.5-5.1) Chloride Level 100mmol/L (97-110) Carbon Dioxide Level 32mmol/L (21-31) Anion Gap 13 (8-16) Blood Urea Nitrogen 6mg/dl (7-20) Creatinine 0.71mg/dl (0.44-1.00) Glucose Level 111mg/dl (70-220) Calcium Level 9.6mg/dl (8.4-10.2) White Blood Count 10.610^3/ul (4.8-10.8) Red Blood Count 3.3810^6/ul (4.20-5.40) Hemoglobin 9.1g/dl (12.0-16.0) Hematocrit 28.2% (37.0-47.0) Mean Corpuscular Volume 83.4fl (82.0-101.0) Mean Corpuscular Hemoglobin 26.9pg (29.0-33.0) Mean Corpuscular Hemoglobin Concent 32.3g/dl (32.0-37.0) Red Cell Distribution Width 14.3% (11.5-14.5) Platelet Count 58145^3/UL (140-415) Mean Platelet Volume 9.9fl (7.4-10.4) Neutrophils % 59.4% (39.0-77.0) Lymphocytes % 20.4% (15.0-51.0) Monocytes % 13.0% (0.0-11.0) Eosinophils % 6.5% (0.0-7.0) Basophils % 0.2% (0.0-2.0) Nucleated Red Blood Cells % 0.0/100WBC (0.0-0.0) Neutrophils # 6.310^3/ul (1.6-7.5) Lymphocytes # 2.210^3/ul (0.8-2.9) Monocytes # 1.410^3/ul (0.3-0.9) Eosinophils # 0.710^3/ul (0.0-0.5) Basophils # 0.010^3/ul (0.0-0.1) Nucleated Red Blood Cells # 0.010^3/ul (0.0-0.0) Lab Scanned Report BLOOD [id number] HUGO MILNER MD Jul 20, 2017 09:34
--- NOTE | 2017-07-20 09:36 | PDOCDIS ---
Discharge Instructions DIAGNOSIS Discharge Diagnosis Lumbar disc disease with significant left-sided radiculopathy; migraine syndrome ; anxiety disorder; rheumatoid arthritis; E. coli UTI; anemia CONDITION Patient Condition: Fair HOME CARE INSTRUCTIONS: Diet Instructions: Regular ACTIVITY: Activity Restrictions: Slowly Increase Activity Rest between Activity Avoid heavy lifting No Sexual Activity Do not Drive Do not operate Power Tool Avoid Heavy Housework Bathing Restrictions: ShowerActivity Restrictions Comment: may shower 5 days after surgery FOLLOW UP/APPOINTMENTS Follow-up Plan Dr. Nelson in [address] Rutledge in 2 weeks HUGO MILNER MD Jul 20, 2017 09:36
[2017-07-20] MEDS ORDERED: MACBID PO (09:37)
[2017-07-20] MEDS ORDERED: CEFOTAXIME 2 GM/50 ML (PMX) 50 ML IVPB ONE (10:30)
[2017-07-20 14:00] VITALS: BP 120/84; RESP 18
== END 2017-07-20 16:05 | disposition home health service (06) | DRG 519 ==
LOC: REC 05:25 → MS1 11:32
PROVIDERS: ADMIT Orthopaedic Surgery; ATTEND Orthopaedic Surgery
PROC: 00UT0JZ Supplement Spinal Meninges with Synthetic Substitute, Open Approach (ICD-10-PCS; 2017-07-17)
PROC: 30233N1 Transfusion of Nonautologous Red Blood Cells into Peripheral Vein, Percutaneous Approach (ICD-10-PCS; 2017-07-17)
PROC: 0SB20ZZ Excision of Lumbar Vertebral Disc, Open Approach (ICD-10-PCS; principal; 2017-07-17 07:00)
DX: M51.16 Intervertebral disc disorders with radiculopathy, lumbar region (principal); G96.11 Dural tear; D62 Acute posthemorrhagic anemia; N39.0 Urinary tract infection, site not specified; D64.9 Anemia, unspecified; M06.9 Rheumatoid arthritis, unspecified; F41.9 Anxiety disorder, unspecified; B96.20 Unspecified Escherichia coli [E. coli] as the cause of diseases classified elsewhere
CPT/HCPCS: 36430; 36569; 71010; 72020; 76937; 80048; 80053; 81001; 81003; 83540; 85014; 85018; 85025; 85610; 85651; 85730; 86850; 86900; 86901; 86920; 87086; 97116; 97163; 97530; C1769; J0360; J0698; J1170; J1200; J2250; J2405; J2710; J3010; J3370; J7042; J7120; P9016

== ENCOUNTER 2018-10-06 05:11 | Inpatient (IN) | payer BC ==
[~2018-10-06] VITALS: Ht 160 cm; Wt 70.3 kg
[2018-10-06] VITALS (26 sets, daily range): BP systolic 111–179; BP diastolic 57–91; PULSE 84–107; RESP 10–25; Ht 160 cm; Wt 70.3 kg
[~2018-10-06 05:11] MED LIST changes: +HYDR-3980 PO; -HYDR-902 PO; +LACTATED RINGER'S 1,000 ML (ENTER RATE) IV* ONE; -LIDOCAINE 1% (MPF) 5 ML VIAL SC ONE; +NITR100C6 PO; +VANCOMYCIN 1 GM 250 ML IVPB ONE
[2018-10-06] MEDS ORDERED: ESOM20CA PO (06:19)
[2018-10-06] MEDS ORDERED: LYR75 PO (06:20)
--- NOTE | 2018-10-06 06:51 | HPN ---
Date/Time of Note Date/Time of Note DATE: 10/06/18 TIME: 06:51 Interval H&P Admission Note Pt. seen H&P reviewed: No system changes MARIANA KERN MD Oct 06, 2018 06:51
[2018-10-06] MEDS ORDERED: METOPROLOL 5 MG INJ ONE (07:00)
[2018-10-06] MEDS ORDERED: SEVOFLURANE 15 MIN ONE (07:00)
--- NOTE | 2018-10-06 07:05 | PREAC ---
Date/Time of Note Date/Time of Note DATE: 10/06/18 TIME: 07:03 Anesthesia Eval and Record Evaluation Time Pre-Procedure Interview DATE: 10/06/18 TIME: 07:03 Age 58 Sex female NPO: 8 hrs Preoperative diagnosis Thorcic -Lumbar stenosis Planned procedure Th-Lumbar Decompression Past Medical History Past Medical History: Includes GI: Morbid obesity Psych: Anxiety Surgery & Anesthesia Issues No known issue Meds Anticoagulation: No Beta Jaquelin within 24 hr: No Reason Beta Jaquelin not given: Pt. not on B-Jaquelin Reported Medications Pregabalin* (Lyrica*) 75 Mg Capsule, 75 MG PO BID for 3 tabs MDD 3 tabs bid, CAP 10/06/18 Esomeprazole Mag Trihydrate (Nexium) 20 Mg Capsule.dr, 20 MG PO DAILY, #30 CAP 10/06/18 Vitamin B Complex* (Vitamin B Complex*) 1 Each Tablet, 1 TAB PO DAILY, TAB 07/16/17 Ubidecarenone (Coq-10) 100 Mg Capsule, 400 MG PO DAILY, CAP 07/16/17 Cyanocobalamin* (Vitamin B12*) 500 Mcg Tab, 1500 MCG PO DAILY, TAB 07/16/17 Ondansetron Hcl* (Zofran*) 4 Mg Tablet, 4 MG PO Q8 PRN for NAUSEA AND OR VOMITING, TAB 07/16/17 Hydrocodone/Acetaminophen ([place] 10-325 Tablet) 1 Each Tablet, 1-2 EACH PO Q4 PRN for PAIN, TAB 07/16/17 Diazepam* (Diazepam*) 5 Mg Tablet, 5 MG PO Q8 PRN for ANXIETY, TAB 07/16/17 Temazepam* (Restoril*) 15 Mg Capsule, 15 MG PO HS PRN for INSOMNIA, CAP 07/16/17 Discontinued Reported Medications [place]-3/Dha/Epa/Fish Oil (Fish Oil 500 mg Softgel) 1 Each Capsule, 1 EACH PO DAILY, CAP 07/16/17 Biotin (Biotin) 5,000 Mcg Tab.rapdis, 5000 MCG PO DAILY, CAP 07/16/17 Pantoprazole* (Protonix*) 40 Mg Tablet.dr, 40 MG PO DAILY, TAB 07/16/17 Discontinued Scripts Nitrofurantoin Monohyd Macrocr (Macrobid) 100 Mg Capsr, 100 MG PO BID for 5 Days, #10 CAP Prov:HUGO MILNER MD 07/20/17 Meds reviewed: Yes Allergies Coded Allergies: Penicillins (Verified Allergy, Severe, RASH, DIFFICULTY BREATHING, 10/06/18) sumatriptan (Verified Allergy, Severe, throat swelling , 10/06/18) Uncoded Allergies: MIGRENE MEDS. (Allergy, Severe, RASH, DIFFICULTY BREATHING, 02/02/09) C[place]AL[place]PE (Allergy, Mild, 03/12/11) DIFFICULTY BREATHING, SWELLING Allergies Reviewed: Yes Labs/Studies Labs Reviewed: Reviewed by anesthesiologist Blood Bank Test 10/06/18 05:27 Blood Product Summary Counts test: N/A Studies: ECG Pre-procedure Exam Last vitals Vital Signs Date Temp Pulse Resp B/P (MAP) Pulse Ox O2 O2 Flow FiO2 Time Delivery Rate 10/06/18 97.8 87 18 179/89 99 Room Air 06:05 (119) Airway: Adequate mouth opening, Adequate thyromental dist Mallampati: Mallampati II Teeth: Normal Lung: Normal Heart: Normal ASA Physical Status ASA physical status: 2 Emergency: None Planned Anesthetic General/MAC: ETT, CVP Planned Pain Management Parenteral pain med Pre-operative Attestations Prior to commencing anesthesia and surgery, the patient was re-evaluated, there was verification of: *The patient's identity *The results of appropriate recent lab work and preoperative vital signs *The above evaluation not changing prior to induction *Anesthetic plan, risk benefits, alternative and complications discussed with patient/family; questions answered; patient/family understands, accepts and wishes to proceed. PAM DEVLIN MD Oct 06, 2018 07:05
[2018-10-06] MEDS ORDERED: MIDAZOLAM 1 MG/ML 2 ML INJ ONE (07:32)
[2018-10-06] MEDS ORDERED: BUPIVACAINE 0.25% (MPF) 30 ML INJ ONE (08:01)
[2018-10-06] MEDS ORDERED: THROMBIN (BOVINE) 5,000 UNIT VIAL TP ONE (08:01)
[2018-10-06] MEDS ORDERED: POLYMYXIN/BACITRACIN 1L IRRIG ONE (08:01)
[2018-10-06] MEDS ORDERED: GELATIN SIZE 100 SPONGE ONE (08:01)
[2018-10-06] MEDS ORDERED: hydrALAzine 20 MG INJ ONE (08:13)
[2018-10-06] MEDS ORDERED: morphine 10 MG INJ ONE (08:18)
[2018-10-06] MEDS ORDERED: ONDANSETRON 4 MG INJ ONE ×2 (09:44→10:45)
[2018-10-06] MEDS ORDERED: METOCLOPRAMIDE 10 MG INJ ONE (09:44)
[2018-10-06] MEDS ORDERED: ETOMIDATE 20 MG INJ ONE (09:45)
[2018-10-06] MEDS ORDERED: ROCURONIUM 50 MG INJ ONE ×2 (09:45)
[2018-10-06] MEDS ORDERED: LIDOCAINE 2% (SDV) 5 ML INJ ONE ×2 (09:45→09:54)
[2018-10-06] MEDS ORDERED: DEXAMETHASONE 4 MG/ML 5 ML INJ ONE (09:47)
[2018-10-06] MEDS ORDERED: GLYCOPYRROLATE 0.4 MG INJ ONE (09:56)
[2018-10-06] MEDS ORDERED: NEOSTIGMINE 3 MG/3 ML SYRINGE ONE (09:56)
[2018-10-06] MEDS ORDERED: FUROSEMIDE 20 MG INJ ONE (10:14)
[2018-10-06] MEDS: DEXTROSE 5%-0.45% NACL 1,000 ML IV SCH ×4 (10:21→23:58)
[2018-10-06] MEDS ORDERED: DIPHENHYDRAMINE 50 MG INJ ONE ×2 (10:27→10:53)
[2018-10-06] MEDS ORDERED: NACL 0.9% 3 ML SYG IV SCH (10:30)
[2018-10-06] MEDS ORDERED: TRIMETHOBENZAMIDE 100 MG/ML VIAL IM PRN (10:30)
[2018-10-06] MEDS ORDERED: NALOXONE (0.4 MG/ML) INJ IV PRN (10:30)
[2018-10-06] MEDS ORDERED: ACETAMINOPHEN 325 MG TAB PO PRN (10:30)
[2018-10-06] MEDS ORDERED: PROCHLORPERAZINE 10 MG TAB PO PRN (10:30)
[2018-10-06] MEDS ORDERED: DIPHENHYDRAMINE 50 MG CAP PO PRN (10:30)
[2018-10-06] MEDS ORDERED: CEPASTAT LOZENGE MT PRN (10:30)
[2018-10-06] MEDS ORDERED: BETHANECHOL 25 MG TAB PO PRN (10:30)
[2018-10-06] MEDS ORDERED: AL HYDROX/MG HYDROX/SIMETH 30 ML CUP PO PRN (10:30)
[2018-10-06] MEDS ORDERED: ONDANSETRON 4 MG INJ IV PRN ×2 (10:30→11:00)
--- NOTE | 2018-10-06 10:34 | SIPON ---
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
--- NOTE | 2018-10-06 10:38 | PAC ---
Date/Time of Note Date/Time of Note DATE: 10/06/18 TIME: 10:38 Post-Anesthesia Notes Post-Anesthesia Note Last documented vital signs Vital Signs Date Temp Pulse Resp B/P (MAP) Pulse Ox O2 O2 Flow FiO2 Time Delivery Rate 10/06/18 97.8 87 18 179/89 99 Room Air 06:05 (119) Activity: WNL Respiratory function: WNL Cardiovascular function: WNL Mental status: Baseline Pain reasonably controlled: Yes Hydration appropriate: Yes Nausea/Vomiting absent: Yes Comments BP:152/67, P:98, spo2:100%, T:98,5 PAM DEVLIN MD Oct 06, 2018 10:38
[2018-10-06] MEDS ORDERED: FENTAnyl 50 MCG/ML VIAL ONE ×2 (10:45→11:29)
[2018-10-06] MEDS ORDERED: METOCLOPRAMIDE 10 MG INJ IV PRN (11:00)
[2018-10-06] MEDS ORDERED: hydrALAzine 20 MG INJ IV PRN (11:00)
[2018-10-06] MEDS ORDERED: ALBUTEROL 0.083% (NEB) 2.5 MG/3 ML AMP HHN PRN (11:00)
[2018-10-06] MEDS ORDERED: MIDAZOLAM 1 MG/ML 2 ML INJ IV PRN (11:00)
[2018-10-06] MEDS ORDERED: DIPHENHYDRAMINE 50 MG INJ IV PRN (11:00)
[2018-10-06] MEDS ORDERED: MEPERIDINE 25 MG INJ IV PRN (11:00)
[2018-10-06] MEDS ORDERED: FENTAnyl 50 MCG/ML VIAL IV PRN (11:00)
[2018-10-06] MEDS ORDERED: LABETALOL HCL 20MG INJ IV PRN (11:00)
[2018-10-06] MEDS ORDERED: HYDROmorphONE 1 MG/5 ML IV SYRINGE IV PRN ×2 (11:00)
[2018-10-06] MEDS ORDERED: HYDROmorphONE 1 MG/5 ML IV SYRINGE IV ONE (11:07)
--- NOTE | 2018-10-06 11:33 | OPR ---
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 OPERATION PERFORMED: 1. Laminectomy at T11. 2. 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 3. Cosmetic wound closure (6 cm). 4. Lateral localizing radiographs (2). 5. Intraoperative monitoring (2-1/2 hours) SURGEON: Yeyo Nelson MD TIRE SHOP MANAGER: Tk Fair MD SECOND TIRE SHOP MANAGER: Frank Rutledge MD ANESTHESIA: General endotracheal. ANESTHESIOLOGIST: Estevan Jones MD ESTIMATED BLOOD LOSS: 50 mL. DRAINS: Two medium Hemovac drains employed. COMPLICATIONS: None. PERTINENT HISTORY AND PHYSICAL: This is a 58-year-old female with chronic pain who has had an intrat hecal pump in place for several years. Recently, she has been having increasing back pain, and a wor kup including an MRI of the lumbar spine revealed a lesion at the tip of the catheter at T11. This w as initially felt by the radiologist to be a meningioma. However, subsequent studies including an MR I of the thoracic spine suggested this may be a catheter granuloma at the tip of her intrathecal cath eter. 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 Fi nal pathologic analysis is pending. OPERATIVE PROCEDURE: With the patient in supine position after satisfactory induction of general end otracheal anesthesia by Dr. Jones, the patient was turned to the prone kneeling position over the [facility] frame. All pressure points were carefully padded. Back was prepped and draped in usual steri le fashion. Athrombic pumps were applied to the legs below the knees to prevent venous stasis during and after procedure. An indwelling Mcak catheter was also placed preoperatively to facilitate blad hali drainage during and after procedure. She had very poor peripheral venous access, and a central l ine was placed by Dr. Jones at the beginning of the procedure. Two spinal needles placed next to wh at was felt to be the spinous process of L1 and L4 and a lateral roentgenogram was taken which confir med anatomic localization. A 6 cm incision then carried out midline over the spinous process of T11 through skin and subcutaneous tissue to the fascia after skin was infiltrated with 0.25% Marcaine wit hout epinephrine for postoperative analgesia. Superficial retractors were placed and hemostasis secu red with electrocautery. Throughout the procedure, copious amounts of antibacterial irrigating solut ion used to periodically irrigate the wound. The fascia was incised in midline with a hot knife and a bilateral subperiosteal dissection carried out at T11. A second intraoperative radiograph was take n with Anatoliy clamps placed in what was felt to be the spinous process of T11 and this was confirmed with second x-ray. A decompressive laminectomy was then carried out using a Fanny right-angle bone rongeur, Leksell rongeur, Kerrison punches and curettes. Ligamentum flavum was excised with sharp d issection. The operating microscope was then moved into place. A firm calcified lesion was identifi ed in the thecal space, and was clearly palpable through the dura with a finger. The dura was opened approximately 3 cm, and stay sutures used to retract the dural edges. The lesion appeared to be fir mly attached to both the dorsal dura, and the conus medullaris. It was dissected off of the undersur face of the dura, but it was not possible to dissect it off of the conus medullaris and it was theref ore partially removed and some remnant of the lesion remained attached to the conus. A frozen sectio n was performed by Dr. Karlos Jiang (pathologist) who felt this was a catheter granuloma and not a malignancy. The dura was closed using running 6-0 Prolene sutures, and a Valsalva maneuver to 40 mm Hg revealed no leakage of spinal fluid after the closure. A double layer of Duragen Plus was laid ov er the dura, and the wound was then closed in layers over 2 medium Hemovac drains, one below the fasc ia, one above the fascia using #1 Stratafix sutures on the deep fascia and parathoracic musculature, 2-0 Stratafix suture on the subcu tissue, and a 4-0 Vicryl subcuticular cosmetic closure on the skin. Two medium hemovacs were employed, one below the fascia, one above the fascia. Dermabond and steri le compressive dressings were then applied and the patient having tolerated procedure well, was then turned to the supine position onto her bed and extubated by Dr. Jones. She was transported to the ecovery room in satisfactory condition. At the conclusion of the procedure, sponge, instrument, and needle counts were all correct. NEED FOR SYSTEM DEVELOPER ASSOCIATE MANAGER: During this spinal surgical procedure, my certified ophthalmic surgical assistant was used to retract and protect the spinal nerves and dural sac. My certified ophthalmic surgical assistant also employed the suction catheters to erick yanet blood from the surgical field to improve visualization of the neural structures. The certified ophthalmic surgical assistant was medically necessary to facilitate the completion of the surgery in a safe and expeditious manner. [facility] [place] regulations, as well as hospital bylaws, preclude the use of non-licensed health care personnel such as operating room technicians, to perform these functions. Throughout the procedure, neural monitoring was carried out by [employer] including EMG, SSEP a nd MEP monitoring of the L2 to the sacrum roots along with spinal cord potentials. These were interp reted in real time by Dr. Vinay Woodruff. The intraoperative monitoring revealed the L2 root was d own 30% bilaterally, the spinal cord potentials improved on the right from 20% down to normal, and fr om 20% down on the left at 10% of normal. Please note a discussion was carried out preoperatively about the potential removal of the entire int rathecal pump and catheter and the patient requested that it be maintained for her comfort. The cath eter was trimmed back to below the lesion but left in place. Dictated By: YEYO NELSON MD TM/NTS Conf#: [id number] DID#: [id number] CC: TK FAIR MD; YEYO NELSON MD; FRANK RUTLEDGE MD; SHANNA URRUTIA MD;*EndCC*
[2018-10-06] MEDS: HYDROmorphONE 0.2 MG/ML PCA IV SCH ×2 (11:58→19:32)
[2018-10-06] MEDS ORDERED: morphine 1 MG/ML 30 ML (PCA) IV SCH (12:00)
[2018-10-06] MEDS ORDERED: NON-FORMULARY/PATIENT OWN MED (Temazepam* (Restoril*) 15 MG) PO PRN (13:30)
--- NOTE | 2018-10-06 14:42 | CONS ---
DATE OF ADMISSION: 10/06/2018 DATE OF CONSULTATION: TYPE OF CONSULTATION: Postoperative internal medicine. The patient had surgery with Dr. Yeyo Nelson on 10/06/2018. REASON FOR CONSULTATION: Consultation was requested by Dr. Yeyo Nelson for medical evaluation and followup of a 58-year-old woman who just underwent surgery. Thank you, Dr. Nelson, for allowing us to participate in the care of this patient. HISTORY OF PRESENT ILLNESS: Annel Tian, a 58-year-old had chronic issues with chronic pain as well as back issues, has had prior back and neck surgeries in the past and was noted to have a cystic les ion at the site of an indwelling catheter part of pain pump apparatus and also had some issues with h erniated disk and has been admitted for correction of the above problems. PAST MEDICAL HISTORY AND SURGICAL HISTORY: Well detailed in the summary of history and physical of [facility] primary care physician. Main issues besides chronic pain in her back, she has been diagnosed with lupus as well as fibromyalgia. She has psoriasis and psoriatic arthritis. Main issue however is he r chronic pain syndrome. CURRENT MEDICATIONS: Include the followin. Diazepam 5 mg q.8h p.r.n. 2. [place] 10/325 1 to 2 every 4 hours as needed. 3. Lyrica 75 mg b.i.d. which she takes 3 tablets b.i.d. 4. Temazepam 15 mg p.o. at bedtime p.r.n. 5. Nexium 20 mg a day. 6. Zofran 4 mg q.8h p.r.n. 7. Vitamin B12 500 mcg. 8. B complex vitamin. 9. Coenzyme Q10 daily. ALLERGIES: SHE IS ALLERGIC TO: 1. C[place]. 2. CERTAIN MIGRAINE MEDICINES THAT SHE DOES NOT REMEMBER THE NAME. 3. PENICILLIN. 4. IMITREX. SOCIAL HISTORY: The patient is , has 2 children. She does not smoke or drink alcohol other t silver on social basis. She is currently disabled secondary to her chronic pain. FAMILY HISTORY: Noncontributory other than there is a family history of diabetes, heart, cancer and hypertension. REVIEW OF SYSTEMS: Basically positive for periodic headaches, tension and migraine as well as back p ain and persistent discomfort secondary to her back pain. PHYSICAL EXAMINATION: VITAL SIGNS: Blood pressure 179/89 during the preop period. Temperature was 98.8. Respirations wer e 18. O2 sat was originally 99% on room air. Pulse was 87. GENERAL: The patient was noted to be a well-developed, well-nourished female, alert and cooperative, in no apparent acute distress. She was oriented to time, place and person. HEENT: Basically unremarkable other than an O2 nasal cannula in place. LUNGS: Basically clear. HEART: Revealed a regular rhythm. ABDOMEN: Soft. Bowel sounds were noted. The rest of the exam was unremarkable. IMPRESSION: 1. Status postop lumbar spine surgery for removal of an intraspinal granuloma as well as lumbar disk disease and chronic pain syndrome secondary to multiple spinal problems. 2. History of lupus and fibromyalgia. 3. History of psoriatic arthritis. 4. Primarily chronic pain syndrome secondary to multiple factors. DISCUSSION: Plan is to follow the patient along with you during her stay at [facility] and monitor her medical condition in general. I have taken the liberty to reorder her preoperative medic saad. I will be more than happy to follow her with you during her stay at [facility]. Thank you again, Dr. Nelson, for allowing me to participate in the care of this patient. Dictated By: SHANNA URRUTIA MD SS/NTS Conf#: [id number] DID#: [id number] CC: YEYO NELSON MD;*End*
[2018-10-06] MEDS: PREGABALIN 75 MG CAP PO SCH (15:52)
[2018-10-06] MEDS: OXYCODONE/ACETAMINOPHEN (10/325) TAB PO PRN ×2 (15:52→22:33)
[2018-10-06] MEDS: VANCOMYCIN 1 GM (PMX) 250 ML IVPB SCH (18:05)
[2018-10-06] MEDS: LORAZEPAM 1 MG TAB PO PRN (18:05)
[2018-10-06] MEDS: RANITIDINE 150 MG TAB PO SCH (20:15)
[2018-10-06] MEDS ORDERED: PREGABALIN 75 MG CAP PO SCH (21:00)
[2018-10-06] MEDS: ZOLPIDEM 5 MG TAB PO PRN (23:51)
[2018-10-07 00:03] VITALS: BP 119/62; PULSE 81; RESP 18
[2018-10-07] MEDS: PREGABALIN 75 MG CAP PO SCH ×4 (01:00→21:39)
[2018-10-07 03:43] VITALS: BP 124/60; PULSE 77; RESP 16
[2018-10-07] MEDS: PANTOPRAZOLE (EC) 40 MG TAB PO SCH (05:05)
[2018-10-07] MEDS: VANCOMYCIN 1 GM (PMX) 250 ML IVPB SCH (05:05)
[2018-10-07] MEDS: OXYCODONE/ACETAMINOPHEN (10/325) TAB PO PRN ×4 (05:06→18:35)
[2018-10-07] MEDS: LORAZEPAM 1 MG TAB PO PRN ×3 (05:19→21:29)
[2018-10-07] MEDS: HYDROmorphONE 0.2 MG/ML PCA IV SCH ×3 (06:36→18:45)
--- NOTE | 2018-10-07 07:17 | PN ---
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 Neurovascular structures are intact distally. She is afebrile. A.m. lab work is unremarkable with the exception of hypokalemia (3.2). She has no headache. Her Hemovac output was 150 cc. I will mobilize her as tolerated with physical therapy. We will observe her Hemovac output. Exam/Review of Systems Vital Signs Vitals Vital Signs Date Temp Pulse Resp B/P (MAP) Pulse Ox O2 O2 Flow FiO2 Time Delivery Rate 10/07/18 05:00 10/07/18 98.5 77 124/60 92 Nasal 03:43 (81) Cannula 10/07/18 3.0 00:03 Intake and Output 10/06/18 10/06/18 10/07/18 1515:00 23:00 07:00 IntakeIntake Total 1000 ml 1090 ml OutputOutput Total 2320 ml 400 ml 1150 ml BalanceBalance -1320 ml 690 ml -1150 ml Results Result Diagram: 10/07/18 0456 10/07/18 0456 MARIANA KERN MD Oct 07, 2018 07:17
[2018-10-07 08:00] VITALS: BP 161/73; PULSE 79
[2018-10-07] MEDS ORDERED: BETHANECHOL 25 MG TAB PO PRN (08:00)
--- NOTE | 2018-10-07 08:23 | CONS ---
Consult Date/Type/Reason Admit Date/Time Oct 06, 2018 at 05:11 Initial Consult Date 10/06/2018 Type of Consultation: internal medicine Reason for Consultation post-op medical management Requesting Provider: MARIANA KERN MD Date/Time of Note DATE: 10/07/18 TIME: 08:17 Subjective comfortable this am no particular complaint Objective Vitals Vital Signs Date Temp Pulse Resp B/P (MAP) Pulse Ox O2 O2 Flow FiO2 Time Delivery Rate 10/07/18 98.3 79 161/73 93 Room Air 08:00 (102) 10/07/18 18 05:00 10/07/18 3.0 00:03 Intake and Output 10/06/18 10/06/18 10/07/18 1515:00 23:00 07:00 IntakeIntake Total 1000 ml 1090 ml 500 ml OutputOutput Total 2320 ml 400 ml 1150 ml BalanceBalance -1320 ml 690 ml -650 ml Exam vital signs stable HEENT negative lungs clear heart regular rhythm abdomen soft Results/Medications Result Diagram: 10/07/18 0456 10/07/18 0456 Results 24 hrs Laboratory Tests Test 10/07/18 04:56 10/07/18 07:57 Hemoglobin 9.3 L Hematocrit 30.4 L Sodium Level 138 Potassium Level 3.2 L Chloride Level 97 Carbon Dioxide Level 33 H Anion Gap 8 Blood Urea Nitrogen 15 Creatinine 0.86 Est Glomerular Filtrat Rate mL/min > 60 Glucose Level 85 Calcium Level 8.6 Lab Scanned Report REFERENCE LAB Home Meds Reported Medications Pregabalin* (Lyrica*) 75 Mg Capsule, 75 MG PO BID for 3 tabs MDD 3 tabs bid, CAP 10/06/18 Esomeprazole Mag Trihydrate (Nexium) 20 Mg Capsule.dr, 20 MG PO DAILY, #30 CAP 10/06/18 Vitamin B Complex* (Vitamin B Complex*) 1 Each Tablet, 1 TAB PO DAILY, TAB 07/16/17 Ubidecarenone (Coq-10) 100 Mg Capsule, 400 MG PO DAILY, CAP 07/16/17 Cyanocobalamin* (Vitamin B12*) 500 Mcg Tab, 1500 MCG PO DAILY, TAB 07/16/17 Ondansetron Hcl* (Zofran*) 4 Mg Tablet, 4 MG PO Q8 PRN for NAUSEA AND OR VOMITING, TAB 07/16/17 Hydrocodone/Acetaminophen (Franklin 10-325 Tablet) 1 Each Tablet, 1-2 EACH PO Q4 PRN for PAIN, TAB 07/16/17 Diazepam* (Diazepam*) 5 Mg Tablet, 5 MG PO Q8 PRN for ANXIETY, TAB 07/16/17 Temazepam* (Restoril*) 15 Mg Capsule, 15 MG PO HS PRN for INSOMNIA, CAP 07/16/17 Discontinued Reported Medications [place]-3/Dha/Epa/Fish Oil (Fish Oil 500 mg Softgel) 1 Each Capsule, 1 EACH PO DAILY, CAP 07/16/17 Biotin (Biotin) 5,000 Mcg Tab.rapdis, 5000 MCG PO DAILY, CAP 07/16/17 Pantoprazole* (Protonix*) 40 Mg Tablet.dr, 40 MG PO DAILY, TAB 07/16/17 Discontinued Scripts Nitrofurantoin Monohyd Macrocr (Macrobid) 100 Mg Capsr, 100 MG PO BID for 5 Days, #10 CAP Prov:HUGO MILNER MD 07/20/17 Medications Current Medications Dextrose/Sodium Chloride 1,000 ml @ 100 mls/hr Q10H IV Last administered on 10/06/18at 23:58; Admin Dose 100 MLS/HR; Start 10/06/18 at 10:21 Zolpidem Tartrate (Ambien) 5 mg HS PRN PO .INSOMNIA Last administered on at 23:51; Admin Dose 5 MG; Start 10/06/18 at 10:30 Prochlorperazine (Compazine) 10 mg Q4H PRN PO NAUSEA/VOMITING; Start 10/06/18 at 10:30 Trimethobenzamide HCl (Tigan) 200 mg Q4H PRN IM NAUSEA/VOMITING; Start 10/06/18 at 10:30 Ondansetron HCl (Zofran Inj) 4 mg Q6H PRN IV NAUSEA/VOMITING; Start 10/06/18 at 10:30 Al Hydrox/Mg Hydrox/Simethicone (Mag-Al Plus) 15 ml Q4H PRN PO .CONSTIPATION; Start 10/06/18 at 10:30 Docusate Sodium (Colace) 100 mg BID PO ; Start 10/07/18 at 09:00 Acetaminophen (Tylenol Tab) 650 mg Q4H PRN PO TEMP GREATER THAN 101F OR OREILLY; Start 10/06/18 at 10:30 Ascorbic Acid (Vitamin C) 1,000 mg BID PO ; Start 10/07/18 at 09:00 Ferrous Sulfate (Ferrous Sulfate (Ec)) 325 mg TID PO ; Start 10/07/18 at 09:00 Ranitidine HCl (Zantac) 150 mg BID PO Last administered on 10/06/18at 20:15; Admin Dose 150 MG; Start 10/06/18 at 21:00 Phenol (Cepastat Lozenge) 1 lozenge PRN PRN MT .SORE THROAT; Start 10/06/18 at 10:30 Diphenhydramine HCl (Benadryl) 50 mg Q6H PRN PO .PRURITUS; Start 10/06/18 at 10:30 IV Flush (NS 3 ml) 3 ml PER PROTOCOL IV ; Start 10/06/18 at 10:30 Naloxone HCl (Narcan) 0.2 mg Q2M PRN IV RR 8 BREATHS/MIN OR LESS; Start 10/06/18 at 10:30 Oxycodone/ Acetaminophen (Endocet (10 325)) 1 tab Q4H PRN PO MODERATE PAIN LEVEL 4-6 Last administered on 10/07/18 05:06; Admin Dose 1 TAB; Start 10/06/18 at 12:00 Lorazepam (Ativan) 2 mg Q8H PRN PO ANXIETY Last administered on 10/07/18 05:19; Admin Dose 2 MG; Start 10/06/18 at 12:00 Hydromorphone HCl (Dilaudid HARBOR DEPARTMENT MANAGER) 0.2 MG/HR CONTINUOUS R... Q4PCA IV Last administered on 10/07/18at 06:36; Admin Dose 6 MG; Start 10/06/18 at 12:00 Cyanocobalamin (Vitamin B12) 1,500 mcg DAILY PO ; Start 10/07/18 at 09:00 Vitamin B Complex/ Vitamin C (Berocca) 1 cap DAILY PO ; Start 10/07/18 at 09:00 Pantoprazole (Protonix Tab) 40 mg DAILY@06 PO Last administered on 10/07/18 05:05; Admin Dose 40 MG; Start 10/07/18 at 06:00 Pregabalin (Lyrica) 150 mg BID PO Last administered on 10/07/18at 01:59; Admin Dose 150 MG; Start 10/06/18 at 16:00 Bethanechol Chloride (Urecholine) 25 mg PRN PRN PO UNABLE TO VOID; Start 10/07/18 at 08:00 Potassium Chloride 30 meq/ Sodium Chloride 1,015 ml @ 125 mls/hr Q8H8M IV ; Start 10/07/18 at 09:00; Stop 10/08/18 at 08:59 Assessment/Plan Hospital Course (Demo Recall) patient post -op spinal granuloma surgery non-ambulatory 2nd to delicate sulgery noted to be hypokalemic Assessment/Plan (Daily) will supplement K and rechecheck in AM not taking diuretic. will follow thank you SHANNA Zhang MD Oct 07, 2018 08:23
[2018-10-07] MEDS ORDERED: UBIDECARENONE 400 MG PO SCH (09:00)
[2018-10-07] MEDS: DOCUSATE SODIUM 100 MG CAP PO SCH ×2 (09:09→21:28)
[2018-10-07] MEDS: FERROUS SULFATE (EC) 325 MG TAB PO SCH ×3 (09:12→21:28)
[2018-10-07] MEDS: CYANOCOBALAMIN 500 MCG TAB PO SCH (09:12)
[2018-10-07] MEDS: RANITIDINE 150 MG TAB PO SCH ×2 (09:13→21:28)
[2018-10-07] MEDS: ASCORBIC ACID 500 MG TAB PO SCH ×2 (09:14→21:29)
[2018-10-07] MEDS: VITAMIN B COMPLEX/VIT C CAP PO SCH (09:16)
[2018-10-07] MEDS: POTASSIUM CHLORIDE 30 MEQ in SOD CHLORIDE 0.45% 1,000 ML IV SCH ×3 (12:09→21:41)
[2018-10-07 13:57] VITALS: BP 155/74; PULSE 85; RESP 18
[2018-10-07] MEDS: DEXTROSE 5%-0.45% NACL 1,000 ML IV SCH (16:21)
[2018-10-07 20:00] VITALS: BP 143/68; PULSE 89; RESP 18
[2018-10-07] MEDS ORDERED: HYDROmorphONE 0.2 MG/ML PCA IV SCH (20:30)
[2018-10-07] MEDS: ZOLPIDEM 5 MG TAB PO PRN (23:21)
[2018-10-08] MEDS: DEXTROSE 5%-0.45% NACL 1,000 ML IV SCH ×2 (02:21→12:21)
[2018-10-08] MEDS: PANTOPRAZOLE (EC) 40 MG TAB PO SCH (05:41)
[2018-10-08] MEDS: POTASSIUM CHLORIDE 30 MEQ in SOD CHLORIDE 0.45% 1,000 ML IV SCH (05:45)
[2018-10-08] MEDS: OXYCODONE/ACETAMINOPHEN (10/325) TAB PO PRN ×4 (05:48→21:18)
[2018-10-08] MEDS: LORAZEPAM 1 MG TAB PO PRN ×2 (06:51→17:13)
--- NOTE | 2018-10-08 06:51 | PN ---
Date/Time of Note Date/Time of Note DATE: 10/08/18 TIME: 06:50 Assessment/Plan Lines/Catheters IV Catheter Type (from Nrs): Central Line Mack in Place (from Nrs): Yes Subjective 24 Hr Interval Summary Patient is postop day #2 following a T11 laminectomy for excision of an intra- dural extra medullary lesion. She has developed a headache, and her Hemovac has 250 cc of watery fluid. Neurovascular structures are intact. She has a low- grade temperature (99.5). Her a.m. lab work shows a correction of her hypokalemia but her hemoglobin has dropped slightly. I will discontinue her gait training and return her to strict bedrest status. Exam/Review of Systems Vital Signs Vitals Vital Signs Date Temp Pulse Resp B/P (MAP) Pulse Ox O2 O2 Flow FiO2 Time Delivery Rate 10/07/18 99.5 89 18 143/68 97 20:00 (93) 10/07/18 Nasal 13:57 Cannula 10/07/18 3.0 00:03 Intake and Output 10/07/18 10/07/18 10/08/18 1515:00 23:00 07:00 IntakeIntake Total 1550 ml 1415 ml 240 ml OutputOutput Total 2540 ml 1300 ml 2050 ml BalanceBalance -990 ml 115 ml -1810 ml Results Result Diagram: 10/08/18 0422 10/08/18 0422 MARIANA KERN MD Oct 08, 2018 06:51
[2018-10-08 07:30] VITALS: BP 159/76; PULSE 82; RESP 18
--- NOTE | 2018-10-08 08:09 | CONS ---
Consult Date/Type/Reason Admit Date/Time Oct 06, 2018 at 05:11 Initial Consult Date 10/06/2018 Type of Consultation: internal medicine Reason for Consultation medical f/u and management Requesting Provider: MARIANA KERN MD Date/Time of Note DATE: 10/08/18 TIME: 08:04 Subjective complaining of severe headache after sitting up Objective Vitals Vital Signs Date Temp Pulse Resp B/P (MAP) Pulse Ox O2 O2 Flow FiO2 Time Delivery Rate 10/08/18 98.1 82 18 159/76 94 Room Air 07:30 (103) 10/07/18 3.0 00:03 Intake and Output 10/07/18 10/07/18 10/08/18 1515:00 23:00 07:00 IntakeIntake Total 1550 ml 1415 ml 1375 ml OutputOutput Total 2540 ml 1300 ml 2450 ml BalanceBalance -990 ml 115 ml -1075 ml Exam vital signs stable HEENT groswsly negative lunggs clear heart regular rhythm abdomen soft Results/Medications Result Diagram: 10/08/18 0422 10/08/18 0422 Results 24 hrs Laboratory Tests Test 10/08/18 04:22 White Blood Count 5.8 # Red Blood Count 3.64 L Hemoglobin 8.4 L Hematocrit 29.0 L Mean Corpuscular Volume 79.7 L Mean Corpuscular Hemoglobin 23.1 L Mean Corpuscular Hemoglobin Concent 29.0 L Red Cell Distribution Width 18.5 #H Platelet Count 174 # Mean Platelet Volume 10.2 Immature Granulocytes % 0.200 Neutrophils % 48.9 Lymphocytes % 27.9 Monocytes % 17.2 H Eosinophils % 5.3 Basophils % 0.5 Nucleated Red Blood Cells % 0.0 Immature Granulocytes # 0.010 Neutrophils # 2.8 Lymphocytes # 1.6 Monocytes # 1.0 H Eosinophils # 0.3 Basophils # 0.0 Nucleated Red Blood Cells # 0.0 Sodium Level 141 Potassium Level 4.4 Chloride Level 98 Carbon Dioxide Level 33 H Anion Gap 10 Blood Urea Nitrogen 9 Creatinine 0.72 Est Glomerular Filtrat Rate mL/min > 60 Glucose Level 86 Calcium Level 9.1 Home Meds Reported Medications Pregabalin* (Lyrica*) 75 Mg Capsule, 75 MG PO BID for 3 tabs MDD 3 tabs bid, CAP 10/06/18 Esomeprazole Mag Trihydrate (Nexium) 20 Mg Capsule.dr, 20 MG PO DAILY, #30 CAP 10/06/18 Vitamin B Complex* (Vitamin B Complex*) 1 Each Tablet, 1 TAB PO DAILY, TAB 07/16/17 Ubidecarenone (Coq-10) 100 Mg Capsule, 400 MG PO DAILY, CAP 07/16/17 Cyanocobalamin* (Vitamin B12*) 500 Mcg Tab, 1500 MCG PO DAILY, TAB 07/16/17 Ondansetron Hcl* (Zofran*) 4 Mg Tablet, 4 MG PO Q8 PRN for NAUSEA AND OR V OMITING, TAB 07/16/17 Hydrocodone/Acetaminophen ([place] 10-325 Tablet) 1 Each Tablet, 1-2 EACH PO Q4 PRN for PAIN, TAB 07/16/17 Diazepam* (Diazepam*) 5 Mg Tablet, 5 MG PO Q8 PRN for ANXIETY, TAB 07/16/17 Temazepam* (Restoril*) 15 Mg Capsule, 15 MG PO HS PRN for INSOMNIA, CAP 07/16/17 Discontinued Reported Medications [place]-3/Dha/Epa/Fish Oil (Fish Oil 500 mg Softgel) 1 Each Capsule, 1 EACH PO DAILY, CAP 07/16/17 Biotin (Biotin) 5,000 Mcg Tab.rapdis, 5000 MCG PO DAILY, CAP 07/16/17 Pantoprazole* (Protonix*) 40 Mg Tablet.dr, 40 MG PO DAILY, TAB 07/16/17 Discontinued Scripts Nitrofurantoin Monohyd Macrocr (Macrobid) 100 Mg Capsr, 100 MG PO BID for 5 Days, #10 CAP Prov:HUGO MILNER MD 07/20/17 Medications Current Medications Dextrose/Sodium Chloride 1,000 ml @ 100 mls/hr Q10H IV Last administered on 10/06/18at 23:58; Admin Dose 100 MLS/HR; Start 10/06/18 at 10:21 Zolpidem Tartrate (Ambien) 5 mg HS PRN PO .INSOMNIA Last administered on 10/07/18at 23:21; Admin Dose 5 MG; Start 10/06/18 at 10:30 Prochlorperazine (Compazine) 10 mg Q4H PRN PO NAUSEA/VOMITING; Start 10/06/18 at 10:30 Trimethobenzamide HCl (Tigan) 200 mg Q4H PRN IM NAUSEA/VOMITING; Start 10/06/18 at 10:30 Ondansetron HCl (Zofran Inj) 4 mg Q6H PRN IV NAUSEA/VOMITING; Start 10/06/18 at 10:30 Al Hydrox/Mg Hydrox/Simethicone (Mag-Al Plus) 15 ml Q4H PRN PO .CONSTIPATION; Start 10/06/18 at 10:30 Docusate Sodium (Colace) 100 mg BID PO Last administered on 10/07/18 21:28; Admin Dose 100 MG; Start 10/07/18 at 09:00 Acetaminophen (Tylenol Tab) 650 mg Q4H PRN PO TEMP GREATER THAN 101F OR OREILLY; Start 10/06/18 at 10:30 Ascorbic Acid (Vitamin C) 1,000 mg BID PO Last administered on 10/07/18 21:29; Admin Dose 1,000 MG; Start 10/07/18 at 09:00 Ferrous Sulfate (Ferrous Sulfate (Ec)) 325 mg TID PO Last administered on 10/07 21:28; Admin Dose 325 MG; Start 10/07/18 at 09:00 Ranitidine HCl (Zantac) 150 mg BID PO Last administered on 10/07/18 21:28; Admin Dose 150 MG; Start 10/06/18 at 21:00 Phenol (Cepastat Lozenge) 1 lozenge PRN PRN MT .SORE THROAT Last administered on 10/08/18 05:48; Admin Dose 1 LOZENGE; Start 10/06/18 at 10:30 Diphenhydramine HCl (Benadryl) 50 mg Q6H PRN PO .PRURITUS; Start 10/06/18 at 1 0:30 IV Flush (NS 3 ml) 3 ml PER PROTOCOL IV ; Start 10/06/18 at 10:30 Naloxone HCl (Narcan) 0.2 mg Q2M PRN IV RR 8 BREATHS/MIN OR LESS; Start 10/06/18 at 10:30 Oxycodone/ Acetaminophen (Endocet (10/ 325)) 1 tab Q4H PRN PO MODERATE PAIN LEVEL 4-6 Last administered on 10/08/18 05:48; Admin Dose 1 TAB; Start 10/06/18 at 12:00 Lorazepam (Ativan) 2 mg Q8H PRN PO ANXIETY Last administered on 10/08/18 06:51; Admin Dose 2 MG; Start 10/06/18 at 12:00 Cyanocobalamin (Vitamin B12) 1,500 mcg DAILY PO Last administered on 10/07/18 09:12; Admin Dose 1,500 MCG; Start 10/07/18 at 09:00 Vitamin B Complex/ Vitamin C (Berocca) 1 cap DAILY PO Last administered on 10/07/18 09:16; Admin Dose 1 CAP; Start 10/07/18 at 09:00 Pantoprazole (Protonix Tab) 40 mg DAILY@06 PO Last administered on 10/08/18 05 :41; Admin Dose 40 MG; Start 10/07/18 at 06:00 Pregabalin (Lyrica) 150 mg BID PO Last administered on 10/07/18 21:39; Admin Dose 150 MG; Start 10/06/18 at 16:00 Bethanechol Chloride (Urecholine) 25 mg PRN PRN PO UNABLE TO VOID; Start 10/07/18 at 08:00 Potassium Chloride 30 meq/ Sodium Chloride 1,015 ml @ 125 mls/hr Q8H8M IV Last administered on 10/08/18 05:45; Admin Dose 125 MLS/HR; Start 10/07/18 at 09:00; Stop 10/08/18 at 08:59 Hydromorphone HCl (Dilaudid RADIOTELEGRAPHER) 0.2 mg Q4PCA IV Last administered on 10/08/18 06:53; Admin Dose 6 MG; Start 10/07/18 at 20:30 Assessment/Plan Hospital Course (Demo Recall) patient post -op spinal granuloma surgery non-ambulatory 2nd to delicate sulgery noted to be hypokalemic Assessment/Plan (Daily) K 4.4 Hgb 8.4 lower than yesterday no obvious source of blood loss .will monitor otherwise medically stable SHANNA URRUTIA MD Oct 08, 2018 08:09
[2018-10-08] MEDS: VITAMIN B COMPLEX/VIT C CAP PO SCH (09:45)
[2018-10-08] MEDS: DOCUSATE SODIUM 100 MG CAP PO SCH ×2 (09:45→20:52)
[2018-10-08] MEDS: CYANOCOBALAMIN 500 MCG TAB PO SCH (09:45)
[2018-10-08] MEDS: ASCORBIC ACID 500 MG TAB PO SCH ×2 (09:46→20:52)
[2018-10-08] MEDS: RANITIDINE 150 MG TAB PO SCH ×2 (09:46→20:52)
[2018-10-08] MEDS: FERROUS SULFATE (EC) 325 MG TAB PO SCH ×3 (09:46→20:52)
[2018-10-08] MEDS: PREGABALIN 75 MG CAP PO SCH ×2 (10:23→20:53)
[2018-10-08 14:14] VITALS: BP 149/74; PULSE 78; RESP 18
[2018-10-08] MEDS: HYDROmorphONE 0.2 MG/ML PCA IV SCH (14:47)
--- NOTE | 2018-10-08 16:40 | CONS ---
DATE OF ADMISSION: 10/06/2018 DATE OF CONSULTATION: 10/08/2018 I saw this patient at the request of Dr. Kern. I actually saw Dr. Kern the day before yester day for the lumbar laminectomy, removal of the proximal catheter from the spinal canal. The patient has done well. She had a little headache yesterday and some CSF leak from the drain. The drain flui d was clear. The patient's dura was calcified, and we had to remove the portion of calcium from the dura, and ther efore that resulted in a dura that is very thin and potentially leaky. We placed Duragen over the du ra and we placed and left a drain in the operating room. I suggested we put the drain on 1/2 to 08/22 suction for about 24 hours and check for the drainage, and potentially leave the drain in another 24 to 48 hours and no suction starting tomorrow. This causes the wound to heal around the catheter, and no CSF collection to be there at the site of the surgery. Unfortunately, if we get the CSF collection and a pseudomeningocele, that will result in a larger pse udomeningocele later, and as a result, we may require surgical intervention. By drainage of the cyst and the suction or just drainage to gravity, we are trying to collapse the CS F collection, and hopefully it will heal on its own. Thank you again for referring this patient to me. I will follow the patient jointly with the rest of the team members. Dictated By: TK VELEZ MD SY/NTS Conf#: [id number] DID#: [id number] CC: MARIANA KERN MD;*End*
[2018-10-08] MEDS: POTASSIUM CHLORIDE 30 MEQ in DEXTROSE 5% 1,000 ML IV SCH (17:30)
[2018-10-08 19:40] VITALS: BP 138/66; PULSE 77; RESP 20
[2018-10-08] MEDS: ZOLPIDEM 5 MG TAB PO PRN (22:10)
[2018-10-09] MEDS: HYDROmorphONE 0.2 MG/ML PCA IV SCH ×3 (00:26→19:13)
[2018-10-09] MEDS: POTASSIUM CHLORIDE 30 MEQ in DEXTROSE 5% 1,000 ML IV SCH ×3 (00:30→21:44)
[2018-10-09] MEDS: LORAZEPAM 1 MG TAB PO PRN ×3 (02:11→18:18)
[2018-10-09 02:30] VITALS: BP 167/75; PULSE 73; RESP 20
[2018-10-09] MEDS: OXYCODONE/ACETAMINOPHEN (10/325) TAB PO PRN ×4 (02:44→21:36)
[2018-10-09 04:42] VITALS: BP 154/73; PULSE 70; RESP 19
[2018-10-09] MEDS: PANTOPRAZOLE (EC) 40 MG TAB PO SCH (06:41)
--- NOTE | 2018-10-09 07:15 | PN ---
Date/Time of Note Date/Time of Note DATE: 10/09/18 TIME: 07:13 Assessment/Plan Lines/Catheters IV Catheter Type (from Nrsg): Central Line Mack in Place (from Nrsg): No Subjective 24 Hr Interval Summary The patient is postop day #3 following a laminectomy at T11, for excision of intraspinal extra medullary lesion. She is resting comfortably. Her headache is improved. She has had 5 cc of drainage into her Hemovac since last night. Neurovascular structures are intact distally. She is afebrile. A.m. lab work is unremarkable except for anemia, which appears to be improving. Her Hemovac was discontinued. Her wound is clean and dry and was redressed. I will mobilize her as tolerated, but if headache recurs she may need additional bed rest. Exam/Review of Systems Vital Signs Vitals Vital Signs Date Temp Pulse Resp B/P (MAP) Pulse Ox O2 O2 Flow FiO2 Time Delivery Rate 10/09/18 98.2 70 19 154/73 98 04:42 (100) 10/08/18 Nasal 14:14 Cannula 10/07/18 3.0 00:03 Intake and Output 10/08/18 10/08/18 10/09/18 1515:00 23:00 07:00 IntakeIntake Total 840 ml 1565 ml 2000 ml OutputOutput Total 60 ml 10 ml 950 ml BalanceBalance 780 ml 1555 ml 1050 ml Results Result Diagram: 10/09/18 0433 10/09/18 0433 MARIANA KERN MD Oct 09, 2018 07:15
[2018-10-09 07:33] VITALS: BP 158/79; PULSE 74; RESP 18
--- NOTE | 2018-10-09 08:07 | CONS ---
Consult Date/Type/Reason Admit Date/Time Oct 06, 2018 at 05:11 Initial Consult Date 10/06/2018 Type of Consultation: internal medicine Reason for Consultation medical f/u and management Requesting Provider: MARIANA KERN MD Date/Time of Note DATE: 10/09/18 TIME: 08:02 Subjective feelin better this am Objective Vitals Vital Signs Date Temp Pulse Resp B/P (MAP) Pulse Ox O2 O2 Flow FiO2 Time Delivery Rate 10/09/18 98.1 74 18 158/79 100 Room Air 07:33 (105) 10/07/18 3.0 00:03 Intake and Output 10/08/18 10/08/18 10/09/18 1414:59 22:59 06:59 IntakeIntake Total 840 ml 1565 ml 2000 ml OutputOutput Total 60 ml 10 ml 950 ml BalanceBalance 780 ml 1555 ml 1050 ml Exam Vital signs stable HEENT negative lungs clear heart regular rhythm Results/Medications Result Diagram: 10/09/1843210/09/18 0433 Results 24 hrs Laboratory Tests Test 10/09/18 04:33 White Blood Count 7.9 # Red Blood Count 3.86 L Hemoglobin 8.8 L Hematocrit 30.2 L Mean Corpuscular Volume 78.2 L Mean Corpuscular Hemoglobin 22.8 L Mean Corpuscular Hemoglobin Concent 29.1 L Red Cell Distribution Width 18.2 H Platelet Count 199 Mean Platelet Volume 10.5 H Immature Granulocytes % 0.400 Neutrophils % 59.8 Lymphocytes % 19.2 Monocytes % 13.1 H Eosinophils % 7.2 H Basophils % 0.3 Nucleated Red Blood Cells % 0.0 Immature Granulocytes # 0.030 Neutrophils # 4.7 Lymphocytes # 1.5 Monocytes # 1.0 H Eosinophils # 0.6 H Basophils # 0.0 Nucleated Red Blood Cells # 0.0 Sodium Level 138 Potassium Level 4.5 Chloride Level 97 Carbon Dioxide Level 34 H Anion Gap 7 Blood Urea Nitrogen 9 Creatinine 0.69 Est Glomerular Filtrat Rate mL/min > 60 Glucose Level 126 # Calcium Level 9.3 Home Meds Reported Medications Pregabalin* (Lyrica*) 75 Mg Capsule, 75 MG PO BID for 3 tabs MDD 3 tabs bid, CAP 10/06/18 Esomeprazole Mag Trihydrate (Nexium) 20 Mg Capsule.dr, 20 MG PO DAILY, #30 CAP 2/18/19 Vitamin B Complex* (Vitamin B Complex*) 1 Each Tablet, 1 TAB PO DAILY, TAB 07/16/17 Ubidecarenone (Coq-10) 100 Mg Capsule, 400 MG PO DAILY, CAP 07/16/17 Cyanocobalamin* (Vitamin B12*) 500 Mcg Tab, 1500 MCG PO DAILY, TAB 07/16/17 Ondansetron Hcl* (Zofran*) 4 Mg Tablet, 4 MG PO Q8 PRN for NAUSEA AND OR VOMITING, TAB 07/16/17 Hydrocodone/Acetaminophen ([place] 10-325 Tablet) 1 Each Tablet, 1-2 EACH PO Q4 PRN for PAIN, TAB 07/16/17 Diazepam* (Diazepam*) 5 Mg Tablet, 5 MG PO Q8 PRN for ANXIETY, TAB 07/16/17 Temazepam* (Restoril*) 15 Mg Capsule, 15 MG PO HS PRN for INSOMNIA, CAP 07/16/17 Discontinued Reported Medications [place]-3/Dha/Epa/Fish Oil (Fish Oil 500 mg Softgel) 1 Each Capsule, 1 EACH PO DAILY, CAP 07/16/17 Biotin (Biotin) 5,000 Mcg Tab.rapdis, 5000 MCG PO DAILY, CAP 07/16/17 Pantoprazole* (Protonix*) 40 Mg Tablet.dr, 40 MG PO DAILY, TAB 07/16/17 Discontinued Scripts Nitrofurantoin Monohyd Macrocr (Macrobid) 100 Mg Capsr, 100 MG PO BID for 5 Days, #10 CAP Prov:HUGO MILNER MD 07/20/17 Medications Current Medications Zolpidem Tartrate (Ambien) 5 mg HS PRN PO .INSOMNIA Last administered on 10/08/18at 22:10; Admin Dose 5 MG; Start 10/06/18 at 10:30 Prochlorperazine (Compazine) 10 mg Q4H PRN PO NAUSEA/VOMITING; Start 10/06/18 at 10:30 Trimethobenzamide HCl (Tigan) 200 mg Q4H PRN IM NAUSEA/VOMITING; Start 10/06/18 at 10:30 Ondansetron HCl (Zofran Inj) 4 mg Q6H PRN IV NAUSEA/VOMITING; Start 10/06/18 at 10:30 Al Hydrox/Mg Hydrox/Simethicone (Mag-Al Plus) 15 ml Q4H PRN PO .CONSTIPATION; Start 10/06/18 at 10:30 Docusate Sodium (Colace) 100 mg BID PO Last administered on 10/08/18 20:52; Admin Dose 100 MG; Start 10/07/18 at 09:00 Acetaminophen (Tylenol Tab) 650 mg Q4H PRN PO TEMP GREATER THAN 101F OR OREILLY; Start 10/06/18 at 10:30 Ascorbic Acid (Vitamin C) 1,000 mg BID PO Last administered on 10/08/18 20:52; Admin Dose 1,000 MG; Start 10/07/18 at 09:00 Ferrous Sulfate (Ferrous Sulfate (Ec)) 325 mg TID PO Last administered on 10/08/18 20:52; Admin Dose 325 MG; Start 10/07/18 at 09:00 Ranitidine HCl (Zantac) 150 mg BID PO Last administered on 10/08/18 20:52; Admin Dose 150 MG; Start 10/06/18 at 21:00 Phenol (Cepastat Lozenge) 1 lozenge PRN PRN MT .SORE THROAT Last administered on 10/08/18 05:48; Admin Dose 1 LOZENGE; Start 10/06/18 at 10:30 Diphenhydramine HCl (Benadryl) 50 mg Q6H PRN PO .PRURITUS; Start 10/06/18 at 10:30 IV Flush (NS 3 ml) 3 ml PER PROTOCOL IV ; Start 10/06/18 at 10:30 Naloxone HCl (Narcan) 0.2 mg Q2M PRN IV RR 8 BREATHS/MIN OR LESS; Start 10/06/18 at 10:30 Oxycodone/ Acetaminophen (Endocet (10/ 325)) 1 tab Q4H PRN PO MODERATE PAIN LEVEL 4-6 Last administered on 10/09/18 06:42; Admin Dose 1 TAB; Start 10/06/18 at 12:00 Lorazepam (Ativan) 2 mg Q8H PRN PO ANXIETY Last administered on 10/09/18 02:11; Admin Dose 2 MG; Start 10/06/18 at 12:00 Cyanocobalamin (Vitamin B12) 1,500 mcg DAILY PO Last administered on 10/08/18 09:45; Admin Dose 1,500 MCG; Start 10/07/18 at 09:00 Vitamin B Complex/ Vitamin C (Berocca) 1 cap DAILY PO Last administered on 10/08/18 09:45; Admin Dose 1 CAP; Start 10/07/18 at 09:00 Pantoprazole (Protonix Tab) 40 mg DAILY@06 PO Last administered on 10/09/18 06:41; Admin Dose 40 MG; Start 10/07/18 at 06:00 Pregabalin (Lyrica) 150 mg BID PO Last administered on 10/08/18at 20:53; Admin Dose 150 MG; Start 10/06/18 at 16:00 Bethanechol Chloride (Urecholine) 25 mg PRN PRN PO UNABLE TO VOID; Start 10/07/18 at 08:00 Hydromorphone HCl (Dilaudid MARGIN TRIMMER) 0.2 MG/HR CONTINUOUS R... Q4PCA IV Last administered on 10/09/18at 00:26; Admin Dose 6 MG; Start 10/08/18 at 15:00 Potassium Chloride 30 meq/ Dextrose 1,015 ml @ 125 mls/hr Q8H8M IV Last administered on 10/09/18at 00:30; Admin Dose 125 MLS/HR; Start 10/08/18 at 16:00 Assessment/Plan Hospital Course (Demo Recall) patient post -op spinal granuloma surgery non-ambulatory 2nd to delicate sulgery noted to be hypokalemic Assessment/Plan (Daily) patiuent feeling better blood pressure lower after iv changed .will ambulate with PT today will decrease IV fluid rate SHANNA URRUTIA MD Oct 09, 2018 08:07
[2018-10-09] MEDS: VITAMIN B COMPLEX/VIT C CAP PO SCH (08:47)
[2018-10-09] MEDS: DOCUSATE SODIUM 100 MG CAP PO SCH ×2 (08:47→21:37)
[2018-10-09] MEDS: RANITIDINE 150 MG TAB PO SCH ×2 (08:47→21:37)
[2018-10-09] MEDS: CYANOCOBALAMIN 500 MCG TAB PO SCH (08:48)
[2018-10-09] MEDS: FERROUS SULFATE (EC) 325 MG TAB PO SCH ×3 (08:48→21:37)
[2018-10-09] MEDS: PREGABALIN 75 MG CAP PO SCH ×2 (08:51→21:37)
[2018-10-09] MEDS: ASCORBIC ACID 500 MG TAB PO SCH ×2 (08:51→21:45)
[2018-10-09 15:42] VITALS: BP 145/70; PULSE 76; RESP 17
[2018-10-09 19:25] VITALS: BP 131/60; PULSE 82; RESP 20
[2018-10-09] MEDS: ZOLPIDEM 5 MG TAB PO PRN (23:39)
[2018-10-10 02:10] VITALS: BP 131/69; PULSE 70; RESP 20
[2018-10-10] MEDS: OXYCODONE/ACETAMINOPHEN (10/325) TAB PO PRN ×4 (04:34→23:43)
[2018-10-10] MEDS: LORAZEPAM 1 MG TAB PO PRN ×2 (06:24→16:26)
[2018-10-10] MEDS: PANTOPRAZOLE (EC) 40 MG TAB PO SCH (06:24)
--- NOTE | 2018-10-10 07:13 | PN ---
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 She is resting comfortably in bed she has a mild headache. She attempted to ambulate yesterday but had a recurrent headache. Neurovascular structures are intact distally. A.m. lab work is unremarkable, and her hemoglobin is now 9.4. I will speak with Dr. Rutledge about her analgesics, so we can discontinue her central line. She is afebrile. Exam/Review of Systems Vital Signs Vitals Vital Signs Date Temp Pulse Resp B/P (MAP) Pulse Ox O2 O2 Flow FiO2 Time Delivery Rate 10/10/18 97.8 70 20 131/69 97 Room Air 02:10 (89) 10/09/18 2.0 09:00 Intake and Output 10/09/18 10/09/18 10/10/18 1515:00 23:00 07:00 IntakeIntake Total 265 ml 2040 ml 1240 ml BalanceBalance 265 ml 2040 ml 1240 ml Results Result Diagram: 10/10/18 0442 10/09/18 0433 MARIANA KERN MD Oct 10, 2018 07:13
[2018-10-10] MEDS ORDERED: morphine (ER) 15 MG TAB PO SCH (07:30)
--- NOTE | 2018-10-10 07:45 | CONS ---
Consult Date/Type/Reason Admit Date/Time Oct 06, 2018 at 05:11 Initial Consult Date 10/06/2018 Type of Consultation: internal medicine Reason for Consultation medical f/u and management Requesting Provider: MARIANA KERN MD Date/Time of Note DATE: 10/10/18 TIME: 07:40 Subjective feels better this am bad headache yesterday on ambulation Objective Vitals Vital Signs Date Temp Pulse Resp B/P (MAP) Pulse Ox O2 O2 Flow FiO2 Time Delivery Rate 10/10/18 97.8 70 20 131/69 97 Room Air 02:10 (89) 10/09/18 2.0 09:00 Intake and Output 10/09/18 10/09/18 10/10/18 1515:00 23:00 07:00 IntakeIntake Total 265 ml 2040 ml 1240 ml BalanceBalance 265 ml 2040 ml 1240 ml Exam vital signs stable HEENT negative lungs clear heart regular rhythm abdomen soft Results/Medications Result Diagram: 10/10/1844110/10/18441 Results 24 hrs Laboratory Tests Test 10/10/18 04:42 Hemoglobin 9.6 L Hematocrit 32.4 L Sodium Level 136 Potassium Level 4.5 Chloride Level 94 L Carbon Dioxide Level 35 H Anion Gap 7 Blood Urea Nitrogen 8 Creatinine 0.68 Est Glomerular Filtrat Rate mL/min > 60 Glucose Level 102 Calcium Level 9.6 Home Meds Reported Medications Pregabalin* (Lyrica*) 75 Mg Capsule, 75 MG PO BID for 3 tabs MDD 3 tabs bid, CAP 10/06/18 Esomeprazole Mag Trihydrate (Nexium) 20 Mg Capsule.dr, 20 MG PO DAILY, #30 CAP 10/06/18 Vitamin B Complex* (Vitamin B Complex*) 1 Each Tablet, 1 TAB PO DAILY, TAB 07/16/17 Ubidecarenone (Coq-10) 100 Mg Capsule, 400 MG PO DAILY, CAP 07/16/17 Cyanocobalamin* (Vitamin B12*) 500 Mcg Tab, 1500 MCG PO DAILY, TAB 07/16/17 Ondansetron Hcl* (Zofran*) 4 Mg Tablet, 4 MG PO Q8 PRN for NAUSEA AND OR VOMITING, TAB 07/16/17 Hydrocodone/Acetaminophen ([place] 10-325 Tablet) 1 Each Tablet, 1-2 EACH PO Q4 PRN for PAIN, TAB 07/16/17 Diazepam* (Diazepam*) 5 Mg Tablet, 5 MG PO Q8 PRN for ANXIETY, TAB 07/16/17 Temazepam* (Restoril*) 15 Mg Capsule, 15 MG PO HS PRN for INSOMNIA, CAP 07/16/17 Discontinued Reported Medications [place]-3/Dha/Epa/Fish Oil (Fish Oil 500 mg Softgel) 1 Each Capsule, 1 EACH PO DAILY, CAP 07/16/17 Biotin (Biotin) 5,000 Mcg Tab.rapdis, 5000 MCG PO DAILY, CAP 07/16/17 Pantoprazole* (Protonix*) 40 Mg Tablet.dr, 40 MG PO DAILY, TAB 07/16/17 Discontinued Scripts Nitrofurantoin Monohyd Macrocr (Macrobid) 100 Mg Capsr, 100 MG PO BID for 5 Days, #10 CAP Prov:HUGO MILNER MD 07/20/17 Medications Current Medications Zolpidem Tartrate (Ambien) 5 mg HS PRN PO .INSOMNIA Last administered on 10/09/18at 23:39; Admin Dose 5 MG; Start 10/06/18 at 10:30 Prochlorperazine (Compazine) 10 mg Q4H PRN PO NAUSEA/VOMITING; Start 10/06/18 at 10:30 Trimethobenzamide HCl (Tigan) 200 mg Q4H PRN IM NAUSEA/VOMITING; Start 10/06/18 at 10:30 Ondansetron HCl (Zofran Inj) 4 mg Q6H PRN IV NAUSEA/VOMITING; Start 10/06/18 at 10:30 Al Hydrox/Mg Hydrox/Simethicone (Mag-Al Plus) 15 ml Q4H PRN PO .CONSTIPATION; Start 10/06/18 at 10:30 Docusate Sodium (Colace) 100 mg BID PO Last administered on 10/09/18at 21:37; Admin Dose 100 MG; Start 10/07/18 at 09:00 Acetaminophen (Tylenol Tab) 650 mg Q4H PRN PO TEMP GREATER THAN 101F OR OREILLY; Start 10/06/18 at 10:30 Ascorbic Acid (Vitamin C) 1,000 mg BID PO Last administered on 10/09/18at 21:45; Admin Dose 1,000 MG; Start 10/07/18 at 09:00 Ferrous Sulfate (Ferrous Sulfate (Ec)) 325 mg TID PO Last administered on 10/09/18 21:37; Admin Dose 325 MG; Start 10/07/18 at 09:00 Ranitidine HCl (Zantac) 150 mg BID PO Last administered on 10/09/18 21:37; Admin Dose 150 MG; Start 10/06/18 at 21:00 Phenol (Cepastat Lozenge) 1 lozenge PRN PRN MT .SORE THROAT Last administered on 10/08/18 05:48; Admin Dose 1 LOZENGE; Start 10/06/18 at 10:30 Diphenhydramine HCl (Benadryl) 50 mg Q6H PRN PO .PRURITUS; Start 10/06/18 at 10:30 IV Flush (NS 3 ml) 3 ml PER PROTOCOL IV ; Start 10/06/18 at 10:30 Naloxone HCl (Narcan) 0.2 mg Q2M PRN IV RR 8 BREATHS/MIN OR LESS; Start 10/06/18 at 10:30 Oxycodone/ Acetaminophen (Endocet ()) 1 tab Q4H PRN PO MODERATE PAIN LEVEL 4-6 Last administered on 10/10/18 04:34; Admin Dose 1 TAB; Start 10/06/18 at 12:00 Lorazepam (Ativan) 2 mg Q8H PRN PO ANXIETY Last administered on 10/10/18 0 6:24; Admin Dose 2 MG; Start 10/06/18 at 12:00 Cyanocobalamin (Vitamin B12) 1,500 mcg DAILY PO Last administered on 10/09/18 08:48; Admin Dose 1,500 MCG; Start 10/07/18 at 09:00 Vitamin B Complex/ Vitamin C (Berocca) 1 cap DAILY PO Last administered on 10/09/18 08:47; Admin Dose 1 CAP; Start 10/07/18 at 09:00 Pantoprazole (Protonix Tab) 40 mg DAILY@06 PO Last administered on 10/10/18 06:24; Admin Dose 40 MG; Start 10/07/18 at 06:00 Pregabalin (Lyrica) 150 mg BID PO Last administered on 10/09/18 21:37; Admin Dose 150 MG; Start 10/06/18 at 16:00 Bethanechol Chloride (Urecholine) 25 mg PRN PRN PO UNABLE TO VOID; Start 10/07/18 at 08:00 Potassium Chloride 30 meq/ Dextrose 1,015 ml @ 80 mls/hr [id number] IV Last administered on 10/09/18at 21:44; Admin Dose 80 MLS/HR; Start 10/08/18 at 16:00 Morphine Sulfate (Ms Contin (Er)) 15 mg Q8 PO ; Start 10/10/18 at 07:30 Assessment/Plan Hospital Course (Demo Recall) patient post -op spinal granuloma surgery non-ambulatory 2nd to delicate sulgery noted to be hypokalemic Assessment/Plan (Daily) patient will try to get up again today hopefully headache will resolve .Hb and Hct improving electrolytes normal.management per thank you SHANNA Zhang MD Oct 10, 2018 07:45
[2018-10-10 08:16] VITALS: BP 127/68; PULSE 76; RESP 20
[2018-10-10] MEDS: FERROUS SULFATE (EC) 325 MG TAB PO SCH ×3 (08:44→20:49)
[2018-10-10] MEDS: ASCORBIC ACID 500 MG TAB PO SCH ×2 (08:44→20:49)
[2018-10-10] MEDS: VITAMIN B COMPLEX/VIT C CAP PO SCH (08:44)
[2018-10-10] MEDS: CYANOCOBALAMIN 500 MCG TAB PO SCH (08:45)
[2018-10-10] MEDS: RANITIDINE 150 MG TAB PO SCH ×2 (08:45→20:49)
[2018-10-10] MEDS: DOCUSATE SODIUM 100 MG CAP PO SCH ×2 (08:45→20:48)
[2018-10-10] MEDS: PREGABALIN 75 MG CAP PO SCH ×2 (08:48→20:49)
[2018-10-10] MEDS: POTASSIUM CHLORIDE 30 MEQ in DEXTROSE 5% 1,000 ML IV SCH (09:42)
[2018-10-10] MEDS ORDERED: morphine (ER) 15 MG TAB PO ONE (11:30)
[2018-10-10 20:43] VITALS: BP 133/79; PULSE 84; RESP 18
[2018-10-10] MEDS: morphine (ER) 30 MG TAB PO SCH (20:49)
[2018-10-10] MEDS: ZOLPIDEM 5 MG TAB PO PRN (21:57)
[2018-10-11 02:20] VITALS: BP 130/64; PULSE 68; RESP 19
[2018-10-11] MEDS: PANTOPRAZOLE (EC) 40 MG TAB PO SCH (06:15)
[2018-10-11] MEDS: OXYCODONE/ACETAMINOPHEN (10/325) TAB PO PRN ×2 (06:16→11:02)
[2018-10-11 08:04] VITALS: BP 127/81; PULSE 76; RESP 18
[2018-10-11] MEDS: PREGABALIN 75 MG CAP PO SCH (08:18)
[2018-10-11] MEDS: RANITIDINE 150 MG TAB PO SCH (08:18)
[2018-10-11] MEDS: VITAMIN B COMPLEX/VIT C CAP PO SCH (08:18)
[2018-10-11] MEDS: morphine (ER) 30 MG TAB PO SCH (08:18)
[2018-10-11] MEDS: CYANOCOBALAMIN 500 MCG TAB PO SCH (08:18)
[2018-10-11] MEDS: ASCORBIC ACID 500 MG TAB PO SCH (08:19)
[2018-10-11] MEDS: DOCUSATE SODIUM 100 MG CAP PO SCH (08:19)
[2018-10-11] MEDS: FERROUS SULFATE (EC) 325 MG TAB PO SCH (08:19)
--- NOTE | 2018-10-11 09:34 | PN ---
Date/Time of Note Date/Time of Note DATE: 10/11/18 TIME: 09:33 Assessment/Plan Lines/Catheters IV Catheter Type (from Nrsg): Central Line Mack in Place (from Nrsg): No Subjective 24 Hr Interval Summary Patient is postop day #5 following a laminectomy at T11 for excision of an intra-dural extra medullary lesion (calcified granuloma). She is feeling much better. She has minimal headache. Neurovascular structures are intact distally. She is afebrile. She has been given strict discharge precautions and instructions as well as follow-up arrangements. Exam/Review of Systems Vital Signs Vitals Vital Signs Date Temp Pulse Resp B/P (MAP) Pulse Ox O2 O2 Flow FiO2 Time Delivery Rate 10/11/18 98.2 76 18 127/81 93 Room Air 08:04 (96) 10/09/18 2.0 09:00 Intake and Output 10/10/18 10/10/18 10/11/18 1515:00 23:00 07:00 IntakeIntake Total 1215 ml 420 ml OutputOutput Total 750 ml 400 ml 300 ml BalanceBalance 465 ml 20 ml -300 ml Results Result Diagram: 10/10/18 0442 10/10/18 0442 MARIANA KERN MD Oct 11, 2018 09:34
== END 2018-10-11 11:40 | disposition home or self-care (01) | DRG 30 ==
LOC: REC 05:11 → MS1 12:49
PROVIDERS: ADMIT Orthopaedic Surgery; ATTEND Orthopaedic Surgery
PROC: 00NX0ZZ Release Thoracic Spinal Cord, Open Approach (ICD-10-PCS; 2018-10-06)
PROC: 4A11X4G Monitoring of Peripheral Nervous Electrical Activity, Intraoperative, External Approach (ICD-10-PCS; 2018-10-06)
PROC: 00BX0ZX Excision of Thoracic Spinal Cord, Open Approach, Diagnostic (ICD-10-PCS; principal; 2018-10-06 07:00)
DX: G06.1 Intraspinal abscess and granuloma (principal); E87.6 Hypokalemia; F41.9 Anxiety disorder, unspecified; G89.4 Chronic pain syndrome; L40.50 Arthropathic psoriasis, unspecified; M32.9 Systemic lupus erythematosus, unspecified; M79.7 Fibromyalgia
CPT/HCPCS: 72020; 80048; 85014; 85018; 85025; 85610; 85730; 86850; 86900; 86901; 86920; 87086; 88305; 88311; 88331; 97110; 97116; 97161; 97530; J0360; J1100; J1170; J1200; J1940; J2250; J2270; J2405; J2710; J2765; J3010; J3370; J3480; J7042; J7070; J7120

== ENCOUNTER 2018-10-16 15:23 | Observation (INO) | payer BC ==
[~2018-10-16] VITALS: Ht 165.1 cm; Wt 70.0 kg
[~2018-10-16 15:23] MED LIST changes: -BIOT5000 PO; +ESOM20CA PO; -LACTATED RINGER'S 1,000 ML (ENTER RATE) IV* ONE; +LYR75 PO; -NITR100C6 PO; -OMEG-144 PO; -PANT40TA3 PO; -VANCOMYCIN 1 GM 250 ML IVPB ONE
[2018-10-16 16:00] VITALS: Ht 165.1 cm; Wt 70.0 kg
[2018-10-16] MEDS ORDERED: DIAZEPAM 5 MG/ML SYG IV ONE (16:00)
[2018-10-16] MEDS ORDERED: HYDROmorphONE 0.5 MG/0.5 ML SYG IV STA (16:14)
[2018-10-16] MEDS ORDERED: HYDROmorphONE 1 MG/ML SYG ONE (16:15)
[2018-10-16] MEDS ORDERED: ONDANSETRON 4 MG INJ IV PRN (17:00)
[2018-10-16] MEDS ORDERED: ACETAMINOPHEN 325 MG TAB PO PRN (17:00)
[2018-10-16] MEDS ORDERED: MIDAZOLAM 1 MG/ML 2 ML INJ IV ONE (17:00)
[2018-10-16] MEDS ORDERED: HYDROmorphONE 2 MG/ML SYG IV STA ×2 (17:12→19:14)
[2018-10-16] MEDS ORDERED: LABETALOL HCL 20MG INJ IV ONE (18:30)
[2018-10-16] MEDS ORDERED: BACLOFEN 10 MG TAB PO ONE (19:00)
[2018-10-16 19:39] VITALS: BP 129/81; PULSE 18; RESP 18
--- NOTE | 2018-10-16 19:58 | ERD ---
ER Documentation Chief Complaint Chief Complaint s/p morphine pump place, c/o R leg pain, unbearable cramps on lucretia leg HPI This is a 58-year-old female with a history of SLE, lupus, anemia, and psoriatic arthritis brought in by her ornamental painter, Dr. Rutledge, and accompanied by her . Patient is complaining of severe right buttock pain with pain radiating down bilateral legs, right greater than left. Patient co mplains of severe 10 out of 10 pain that she describes as cramping and aching. She had multiple episodes of urinary incontinence prior to arrival. Reportedly she had a procedure done today by Dr. Rutledge where he refilled her pump with Dilaudid. She was doing well after that but while in the car going home, she started having the symptoms. Otherwise history is somewhat limited from the patient as she is screaming in pain, very uncomfortable, unable to focus. She has not had any bowel incontinence. Dr. Rutledge contacted her spinal surgeon, Dr. Nelson. Patient underwent thoracolumbar decompression about 10 days ago. MRI was recommended given concern of cauda equina. ROS All systems reviewed and are negative except as per history of present illness. Medications Home Meds Reported Medications Pregabalin* (Lyrica*) 75 Mg Capsule, 75 MG PO BID for 3 tabs MDD 3 tabs bid, CAP 10/06/18 Esomeprazole Mag Trihydrate (Nexium) 20 Mg Capsule., 20 MG PO DAILY, #30 CAP 10/06/18 Vitamin B Complex* (Vitamin B Complex*) 1 Each Tablet, 1 TAB PO DAILY, TAB 07/16/17 Ubidecarenone (Coq-10) 100 Mg Capsule, 400 MG PO DAILY, CAP 07/16/17 Cyanocobalamin* (Vitamin B12*) 500 Mcg Tab, 1500 MCG PO DAILY, TAB 07/16/17 Ondansetron Hcl* (Zofran*) 4 Mg Tablet, 4 MG PO Q8 PRN for NAUSEA AND OR VOMITING, TAB 07/16/17 Hydrocodone/Acetaminophen ([place] 10-325 Tablet) 1 Each Tablet, 1-2 EACH PO Q4 PRN for PAIN, TAB 07/16/17 Diazepam* (Diazepam*) 5 Mg Tablet, 5 MG PO Q8 PRN for ANXIETY, TAB 07/16/17 Temazepam* (Restoril*) 15 Mg Capsule, 15 MG PO HS PRN for INSOMNIA, CAP 07/16/17 Allergies Allergies: Coded Allergies: Penicillins (Verified Allergy, Severe, RASH, DIFFICULTY BREATHING, 10/16/18) sumatriptan (Verified Allergy, Severe, throat swelling , 10/16/18) Uncoded Allergies: MIGRENE MEDS. (Allergy, Severe, RASH, DIFFICULTY BREATHING, 02/02/09) CANTALOUPE (Allergy, Mild, 03/12/11) DIFFICULTY BREATHING, SWELLING PMhx/Soc History of Surgery: Yes (neck sx,abdl sx,chuy.cholecysatectomy,x3 back sx,rtkr,c section x2,pain pump) Anesthesia Reaction: No Hx Neurological Disorder: No Hx Respiratory Disorders: Yes (slight pneumonia x2) Hx Cardiac Disorders: No Hx Psychiatric Problems: No Hx Miscellaneous Medical Probl: Yes (chronic pain, lupus, fibromyalagia, psoriasis, psoriatic arthritis, thoracolumbar stenosis) Hx Alcohol Use: No Hx Substance Use: No Hx Tobacco Use: No Smoking Status: Never smoker FmHx Family History: No diabetes Physical Exam Vitals Vital Signs Date Temp Pulse Resp B/P (MAP) Pulse Ox O2 O2 Flow FiO2 Time Delivery Rate 10/16/18 91 14 154/98 94 19:20 (116) 10/16/18 93 17 153/93 95 Room Air 18:50 (113) 10/16/18 116 18 202/95 96 Room Air 17:49 (130) 10/16/18 118 18 198/97 98 Room Air 16:54 (130) 10/16/18 98.7 140 18 209/130 99 16:00 (156) Physical Exam Const: severe distress due to pain. Diaphoretic. Screaming. Head: Atraumatic Eyes: Normal Conjunctiva ENT: Normal External Ears, Nose and Mouth. Neck: Full range of motion. No meningismus. Resp: Clear to auscultation bilaterally Cardio: Tachycardic, regular rhythm, no murmurs Abd: Soft, non tender, non distended. Normal bowel sounds Skin: No petechiae or rashes Ext: No cyanosis, or edema. 2+ DP and PT pulses bilaterally. 2+ radial pulses bilaterally. Neur: Awake and alert, normal speech, no facial asymmetry, moving all extremities spontaneously. Strength 4 out of 5 in bilateral lower extremities with foot plantar flexion and dorsiflexion. Unable to test strength at knee or hip secondary to severe pain. Sensations intact distally. Diminished sensations over the anterior thighs bilaterally. Result Diagram: 10/16/18 1535 10/16/18 1535 Results 24 hrs Laboratory Tests Test 10/16/18 15:35 White Blood Count 13.6 10^3/ul Red Blood Count 4.96 10^6/ul Hemoglobin 11.6 g/dl Hematocrit 39.1 % Mean Corpuscular Volume 78.8 fl Mean Corpuscular Hemoglobin 23.4 pg Mean Corpuscular Hemoglobin Concent 29.7 g/dl Red Cell Distribution Width 19.2 % Platelet Count 550 10^3/UL Mean Platelet Volume 9.8 fl Immature Granulocytes % 0.400 % Neutrophils % 51.9 % Lymphocytes % 35.4 % Monocytes % 9.2 % Eosinophils % 2.6 % Basophils % 0.5 % Nucleated Red Blood Cells % 0.0 /100WBC Immature Granulocytes # 0.050 10^3/ul Neutrophils # 7.1 10^3/ul Lymphocytes # 4.8 10^3/ul Monocytes # 1.3 10^3/ul Eosinophils # 0.4 10^3/ul Basophils # 0.1 10^3/ul Nucleated Red Blood Cells # 0.0 10^3/ul Prothrombin Time 12.3 Sec Prothrombin Time Ratio 1.0 INR International Normalized Ratio 0.90 Activated Partial Thromboplast Time 26.4 Sec Sodium Level 143 mmol/L Potassium Level 3.7 mmol/L Chloride Level 99 mmol/L Carbon Dioxide Level 23 mmol/L Anion Gap 21 Blood Urea Nitrogen 12 mg/dl Creatinine 0.98 mg/dl Est Glomerular Filtrat Rate mL/min 58 mL/min Glucose Level 205 mg/dl Calcium Level 10.7 mg/dl Total Bilirubin 0.1 mg/dl Direct Bilirubin 0.00 mg/dl Indirect Bilirubin 0.1 mg/dl Aspartate Amino Transf (AST/SGOT) 38 IU/L Alanine Aminotransferase (ALT/SGPT) 21 IU/L Alkaline Phosphatase 120 IU/L Total Protein 9.1 g/dl Albumin 5.1 g/dl Globulin 4.00 g/dl Albumin/Globulin Ratio 1.27 Current Medications Medications Dose Sig/Eva Start Time Status Last (Trade) Ordered Route PRN Stop Time Admin Dose Reason Admin Diazepam 10 mg ONCE ONCE 10/16/18 DC 10/16/18 (Valium) IV 16:00 15:37 10/16/18 16:01 1 mg ONCE STAT 10/16/18 DC 10/16/18 Hydromorphone IV 16:14 16:16 HCl 10/16/18 16:15 (Dilaudid) 1 mg STK-MED 10/16/18 DC Hydromorphone ONCE .ROUTE 16:15 HCl 10/16/18 16:16 (Dilaudid) Ondansetron 4 mg BRIDGE ORDER 10/16/18 HCl (Zofran PRN IV 17:00 10/17/18 Inj) NAUSEA/VOMITI 16:59 NG 650 mg ER BRIDGE 10/16/18 Acetaminophen PRN PO 17:00 10/17/18 (Tylenol .MILD PAIN 16:59 Tab) 1-3 OR TEMP Midazolam 2 mg ONCE ONCE 10/16/18 DC 10/16/18 HCl IV 17:00 16:54 (Versed) 10/16/18 17:01 1 mg ONCE STAT 10/16/18 DC 10/16/18 Hydromorphone IV 17:12 17:25 HCl 10/16/18 17:13 (Dilaudid) Labetalol 20 mg ONCE ONCE 10/16/18 DC 10/16/18 HCl IV 18:30 18:07 (Labetalol) 10/16/18 18:31 Baclofen 10 mg ONCE ONCE 10/16/18 DC 10/16/18 (Lioresal) PO 19:00 18:47 10/16/18 19:01 1 mg ONCE STAT 10/16/18 DC 10/16/18 Hydromorphone IV 19:14 19:29 HCl 10/16/18 19:15 (Dilaudid) Procedures/MDM EMERGENT LABS AND DIAGNOSTIC STUDIES: Lab Results above were reviewed and interpreted by me. CBC: Leukocytosis and thrombocytosis, unclear etiology. CMP: No evidence of electrolyte abnormality, renal failure, hypoglycemia, liver failure, or biliary obstruction Radiology Results as interpreted by Radiology below were reviewed by Rajesh Montoya MD: CTA abdomen with runoffs: No evidence of aortic dissection. MRI thoracic and lumbar spine pending Initial Nursing notes reviewed. Previous Medical Records requested via the Electronic Health Record. EMERGENCY DEPARTMENT COURSE / MEDICAL DECISION MAKING: Patient presented with severe bilateral leg pain and urinary incontinence after a procedure done on her pump. She presented with severe pain and symptoms concerning for cauda equina. She was noted to be very hypertensive, which may be secondary to her pain, however I still had a suspicion for possible aortic and arterial dissection in the setting of hypertension. MRI was emergently ordered to evaluate her thoracic and lumbar spine given suspicion for cauda equina. While she was awaiting MRI, CTA was done and did not show any evidence of dissection. I medicated the patient with multiple benzodiazepines as well as IV opiates prior to MRI. However the patient was unable to tolerate the MRI due to her "claustrophobia" and she kept moving due to her leg spasms. They were unable to complete the procedure. Prior to leaving, Dr. Rutledge had spoken to Dr. Nelson, the patient's spinal surgeon, who stated he wants the patient admitted to his personal service. Patient was brought back to the ER. More medications were given. At this point I feel the patient probably needs conscious sedation for MRI. I communicated this with Dr. Rutledge over the phone. I tried to contact Dr. Nelson multiple times to discuss the patient's case, without success. I again contacted Dr. Rutledge and asked him to communicate the MRI failure with Dr. Nelson if possible. Received a call back stating that the surgeon wanted an MRI done emergently with procedural sedation done by anesthesia. It was explained that this needs to be set up by the surgeon directly with anesthesia. The warehouseman was also looped into this conversation. Patient was transferred to the floor with her pain somewhat improved. I will defer procedural sedation arrangements to the primary provider. Accepting Care Team: Current data and ongoing care discussed. Time: Time of admission Primary Provider: Dr. Nelson Consulting: Dr. Rutledge Outstanding Data: MRI T/L spine Departure Diagnosis: Primary Impression: Bilateral leg pain Additional Impressions: Intractable pain Urinary incontinence Urinary Incontinence type: unspecified incontinence Qualified Codes: R32 - Unspecified urinary incontinence Condition: SHIV Oconnell MD Oct 16, 2018 19:57
[2018-10-16] MEDS: BACLOFEN 10 MG TAB PO SCH (20:28)
[2018-10-16] MEDS ORDERED: DIAZEPAM 5 MG/ML SYG IV PRN (20:30)
[2018-10-16] MEDS ORDERED: ZOLPIDEM 5 MG TAB PO PRN (20:30)
[2018-10-16] MEDS ORDERED: LACTATED RINGER'S 1,000 ML IV SCH (21:00)
[2018-10-16] MEDS ORDERED: BACLOFEN 10 MG TAB NGT SCH (21:00)
[2018-10-16] MEDS ORDERED: ONDANSETRON 4 MG INJ ONE (21:53)
[2018-10-16] MEDS ORDERED: PROPOFOL 100 ML ONE (21:53)
[2018-10-16] MEDS ORDERED: MIDAZOLAM 1 MG/ML 2 ML INJ ONE (21:53)
[2018-10-16] MEDS ORDERED: PHENYLephrine (100 MCG/ML) 5ML SYG ONE (21:54)
[2018-10-16] MEDS ORDERED: LORAZEPAM 2 MG INJ IV ONE (22:00)
--- NOTE | 2018-10-16 22:20 | PREAC ---
Date/Time of Note Date/Time of Note DATE: 10/16/18 TIME: 22:19 Anesthesia Eval and Record Evaluation Time Pre-Procedure Interview DATE: 10/16/18 TIME: 22:19 Age 58 Sex female NPO: 8 hrs Preoperative diagnosis INTRACTABLE LOWER BACK PAIN R/O CAUDA EQUINA SYNDROME Planned procedure THORACIC AND LUMBAR MRI Past Medical History Past Medical History: Includes (SLE, RA, ANXIETY , DEPRESSION) Surgery & Anesthesia Issues No known issue Meds Anticoagulation: No Beta Jaquelin within 24 hr: No Reason Beta Jaquelin not given: Pt. not on B-Jaquelin Reported Medications Pregabalin* (Lyrica*) 75 Mg Capsule, 75 MG PO BID for 3 tabs MDD 3 tabs bid, CAP 10/06/18 Esomeprazole Mag Trihydrate (Nexium) 20 Mg Capsule.dr, 20 MG PO DAILY, #30 CAP 10/06/18 Vitamin B Complex* (Vitamin B Complex*) 1 Each Tablet, 1 TAB PO DAILY, TAB 07/16/17 Ubidecarenone (Coq-10) 100 Mg Capsule, 400 MG PO DAILY, CAP 07/16/17 Cyanocobalamin* (Vitamin B12*) 500 Mcg Tab, 1500 MCG PO DAILY, TAB 07/16/17 Ondansetron Hcl* (Zofran*) 4 Mg Tablet, 4 MG PO Q8 PRN for NAUSEA AND OR VOMIT ING, TAB 07/16/17 Hydrocodone/Acetaminophen ([place] 10-325 Tablet) 1 Each Tablet, 1-2 EACH PO Q4 PRN for PAIN, TAB 07/16/17 Diazepam* (Diazepam*) 5 Mg Tablet, 5 MG PO Q8 PRN for ANXIETY, TAB 07/16/17 Temazepam* (Restoril*) 15 Mg Capsule, 15 MG PO HS PRN for INSOMNIA, CAP 07/16/17 Current Medications Diazepam (Valium) 5 mg Q4 PRN IV MUSCLE SPASMS Last administered on 10/16/18at 20:31; Admin Dose 5 MG; Start 10/16/18 at 20:30 Zolpidem Tartrate (Ambien) 10 mg HS PRN PO INSOMNIA; Start 10/16/18 at 20:30 Baclofen (Lioresal) 10 mg TID PO Last administered on 10/16/18at 20:28; Admin Dose 10 MG; Start 10/16/18 at 21:00 Lactated Ringer's 1,000 ml @ 0 mls/hr Q0M IV Last administered on 10/16/18at 20:55; Admin Dose 20 MLS/HR; Start 10/16/18 at 21:00 Meds reviewed: Yes Allergies Coded Allergies: Penicillins (Verified Allergy, Severe, RASH, DIFFICULTY BREATHING, 10/16/18) sumatriptan (Verified Allergy, Severe, throat swelling , 10/16/18) Uncoded Allergies: MIGRENE MEDS. (Allergy, Severe, RASH, DIFFICULTY BREATHING, 02/02/09) CANTALOUPE (Allergy, Mild, 03/12/11) DIFFICULTY BREATHING, SWELLING Allergies Reviewed: Yes Labs/Studies Labs Reviewed: Reviewed by anesthesiologist Result Diagram: 10/16/18 1535 10/16/18 1535 Laboratory Tests 10/16/18 15:35 test: Negative Pre-procedure Exam Last vitals Vital Signs Date Temp Pulse Resp B/P (MAP) Pulse Ox O2 O2 Flow FiO2 Time Delivery Rate 10/16/18 99.4 18 18 129/81 92 19:39 (97) 10/16/18 Room Air 18:50 Airway: Adequate mouth opening, Adequate thyromental dist Mallampati: Mallampati II Teeth: Normal Lung: Normal Heart: Normal ASA Physical Status ASA physical status: 2 Emergency: None Planned Anesthetic General/MAC: MAC Planned Pain Management Parenteral pain med Pre-operative Attestations Prior to commencing anesthesia and surgery, the patient was re-evaluated, there was verification of: *The patient's identity *The results of appropriate recent lab work and preoperative vital signs *The above evaluation not changing prior to induction *Anesthetic plan, risk benefits, alternative and complications discussed with patient/family; questions answered; patient/family understands, accepts and wishes to proceed. Estevan Kim M.D. Oct 16, 2018 22:20
[2018-10-17] VITALS (17 sets, daily range): BP systolic 93–119; BP diastolic 53–71; PULSE 73–88; RESP 8–25
[2018-10-17] MEDS: OXYMETAZOLINE 0.05% 15 ML NAS SPRAY NASAL SCH ×3 (01:00→21:24)
[2018-10-17] MEDS ORDERED: DOCUSATE SODIUM 100 MG CAP PO PRN (02:00)
[2018-10-17] MEDS ORDERED: NON-FORMULARY/PATIENT OWN MED (Temazepam* (Restoril*) 15 MG) PO PRN (02:00)
[2018-10-17] MEDS ORDERED: ONDANSETRON 4 MG TAB PO PRN (02:00)
[2018-10-17] MEDS ORDERED: HYDROCODONE/APAP (10/325) TAB PO PRN (02:00)
[2018-10-17] MEDS ORDERED: NACL 0.9% 3 ML SYG IV SCH (02:00)
--- NOTE | 2018-10-17 02:57 | CONS ---
DATE OF ADMISSION: 10/16/2018 DATE OF CONSULTATION: 10/16/2018 TYPE OF CONSULTATION: Orthopedic. CHIEF COMPLAINT: 1. Urinary incontinence episode today. 2. Severe pain and weakness in the legs. HISTORY OF PRESENT ILLNESS: This is a 58-year-old female well known to me, having recently undergone a thoracic laminectomy at T11 for excision of catheter-induced granuloma at [facility]. She has been doing well and was seeing Dr. Frank Rutledge for pain management and earlier today, she had her implanted pain pump adjusted. Shortly thereafter, she developed severe pain and spasms in her legs and episode of urinary incontinence. She was advised to present to the emergency room wh ere she was evaluated and per my recommendation, admitted for further evaluation and treatment. PHYSICAL EXAMINATION: GENERAL: The patient is examined in the postanesthesia care unit, having recently undergone an MRI o f the thoracic and lumbar spine with IV sedation provided by Dr. Kim. She is awake and alert a nd mental status is unremarkable. NEUROLOGIC: Lower extremities reveal no weakness or sensory loss. Reflexes are absent in the right knee and +1 at the left knee. Ankle reflexes are absent bilaterally. Straight leg raising is negati ve. Gait was not assessed due to her recent sedation. Buttock sensory and motor examinations are no rmal. RECTAL: Examination done in the presence of a female nurse was negative with good rectal tone noted. DIAGNOSTIC DATA: MRI of the thoracic and lumbar spine with and without contrast was done minutes ago and was reviewed and felt to demonstrate no significant canal compromise. DIAGNOSES: 1. Status post excision of a catheter-induced calcified granuloma T11 (approximately 10 days ago). 2. Chronic pain syndrome. 3. Multiple previous lumbar surgeries. CONCLUSION: This 58-year-old female was admitted with presumptive diagnosis of cauda equina syndrome ; however it appears that she has an unremarkable imaging of her thoracic and lumbar spine insofar as the canal compromise is concerned and I suspect that her symptoms and urinary incontinence were due to a pain response. I have admitted her for observation and we will have physical therapy see her in the morning along with Dr. Ny for a general medical evaluation. Dictated By: MARIANA KERN MD TM/NTS Conf#: [id number] DID#: [id number] CC: FRANK RUTLEDGE MD; SHANNA NY MD;*[facility]*
[2018-10-17] MEDS: DIAZEPAM 5 MG TAB PO PRN (04:30)
[2018-10-17] MEDS: morphine 2 MG INJ IV PRN ×3 (04:31→19:36)
[2018-10-17] MEDS: PANTOPRAZOLE (EC) 40 MG TAB PO SCH (05:12)
--- NOTE | 2018-10-17 07:17 | PN ---
Date/Time of Note Date/Time of Note DATE: 10/17/18 TIME: 07:14 Assessment/Plan Lines/Catheters IV Catheter Type (from Nrsg): Peripheral IV Subjective 24 Hr Interval Summary The patient is a 58-year-old female who was admitted through the emergency room last night complaining of urinary incontinence, pain and spasm in her legs. She had an emergency MRI of the thoracic and lumbar spine with and without contrast last evening, which demonstrated a satisfactory postop appearance of her T11 laminectomy done recently, and other postsurgical changes in the lumbar spine that are more chronic in nature. There is no significant canal compromise or cauda equina compression. This morning, she is resting more comfortably, and indicates the spasms are under control. She does have some back and right leg pain. Examination this morning shows neurovascular structures are intact distally. She is afebrile. Lab work is unremarkable exception of mild anemia which is chronic. She would be mobilized as tolerated by physical therapy, and discharged home when cleared by physical therapy. She will also be seen in medical consultation by Dr. Ny Exam/Review of Systems Vital Signs Vitals Vital Signs Date Temp Pulse Resp B/P (MAP) Pulse Ox O2 O2 Flow FiO2 Time Delivery Rate 10/17/18 98.6 80 18 113/57 98 01:27 (75) 10/17/18 Room Air 00:59 Intake and Output 10/16/18 10/16/18 10/17/18 1515:00 23:00 07:00 IntakeIntake Total 160 ml BalanceBalance 160 ml Results Result Diagram: 10/17/18 0424 10/16/18 1535 MARIANA KERN MD Oct 17, 2018 07:17
[2018-10-17] MEDS: CYANOCOBALAMIN 500 MCG TAB PO SCH (08:37)
[2018-10-17] MEDS: BACLOFEN 10 MG TAB PO SCH ×3 (08:37→21:23)
[2018-10-17] MEDS: PREGABALIN 75 MG CAP PO SCH ×2 (08:37→21:23)
[2018-10-17] MEDS: FAMOTIDINE 20 MG TAB PO SCH ×2 (08:37→21:23)
[2018-10-17] MEDS: VITAMIN B COMPLEX/VIT C CAP PO SCH (08:37)
[2018-10-17] MEDS ORDERED: NON-FORMULARY/PATIENT OWN MED (Esomeprazole Mag Trihydrate (Nexium) 20 MG) PO SCH (09:00)
[2018-10-17] MEDS ORDERED: UBIDECARENONE 400 MG PO SCH (09:00)
--- NOTE | 2018-10-17 09:10 | HP ---
DATE OF ADMISSION: 10/16/2018 HISTORY OF PRESENT ILLNESS: This is one of several [facility] admissions for this 58-year-old woman admitted with chief complaint of intractable lower extremity and thigh pain post manipulation of a pain pump for reloading and repositioning. The patient had recently been discharged on 10/11/2018 from [facility] after having some back surgery, she was doing relatively well. Her pain pump had been turned off and was going to be restarted and repositioned. After restarting, she started experiencing excruciating muscle spasm as well as pain in her lower extremity primarily on the right side with inability to ambulate and the patient was immediately taken to the emergency room where evaluation was undertaken to rule out acute cauda equina syndrome as well as other possible etiologies for the sudden turn and she was admitted for further treatment and evaluation. The patient's past history and social history and family history is well documented in her hospitalization 2 weeks ago for surgery on her spine. MEDICATIONS: 1. Diazepam 5 mg q.8h. p.r.n. 2. [place] 10/325 1 to 2 q.4h. p.r.n. 3. Lyrica 75 mg 3 tabs b.i.d. 4. Temazepam 15 mg at bedtime p.r.n. 5. Nexium 20 mg daily. 6. Zofran 4 mg p.o. q.8h. p.r.n. 7. Vitamin B12 500 mcg daily. 8. Vitamin B complex one daily. 9. Coenzyme Q10 100 mg daily. ALLERGIES: CANTALOUPE, PENICILLIN, SUMATRIPTAN, ANOTHER MIGRAINE MEDICINES WHICH SHE DOES NOT REMEMBER. REVIEW OF SYSTEMS: HEENT: Unremarkable. CARDIORESPIRATORY: She denies any chest pain or shortness of breath. GASTROINTESTINAL: No melena or hematemesis. GENITOURINARY: No urgency, frequency. MUSCULOSKELETAL: Positive now for back pain as well as excruciating right lower extremity pain. NEUROPSYCHIATRIC: Unremarkable. GENERAL HEALTH: As above. PHYSICAL EXAMINATION: VITAL SIGNS: The patient's blood pressure was 99/55, pulse was 73 and regular, respirations were 17, temperature 98.4, O2 98% on room air. HEENT: Head was atraumatic. Eyes: Pupils were reactive to light and accommodation. Nose and mouth were unremarkable. No obvious lesions were noted. NECK: Supple without any rigidity. Trachea was midline. Thyroid was unremarkable. Neck veins were flat. Carotid pulses were palpable and equal. No bruits were heard. LUNGS: Clear. HEART: PMI was 5th intercostal space at the midclavicular line. Regular sinus rhythm was noted. No significant murmurs, rubs, or gallops being elicited. ABDOMEN: Soft, good bowel sounds were noted. No significant organomegaly, masses, or tenderness. PELVIC/RECTAL: Up to date per quirk sander. EXTREMITIES: Did not reveal any clubbing, edema or cyanosis; however, the patient was tender to touch, and could not really raise her right lower extremity from the ankle to the thigh. Sensation and motion was normal on the left. Peripheral pulses were physiologic. SKIN: Moist and warm without any eruptions. No gross lymphadenopathy was noted. NEUROLOGIC: Well described by Dr. Yeyo Nelson. IMPRESSION: 1. Acute severe pain, right lower extremity post repositioning of pain pump, etiology to be determined. 2. History of chronic lumbar spine and thoracic spine issues post multiple surgeries. 3. Chronic pain syndrome. 4. Gastroesophageal reflux disease. 5. Stable health. DISCUSSION: Review of laboratory and other data revealed the following: The patient's CBC revealed a normal white count this morning as well as a hemoglobin of 9.6, hematocrit of 33.3. The patient's chemistry panel is basically normal with an elevated glucose at 205. Other than that liver function test is normal. Proteins appeared to be high. Coag studies were normal. The patient had imaging done including a thoracic spine MRI and lumbar spine MRI, which revealed chronic ongoing issues, nothing appeared to be new in abdominal angiogram to rule out any other issues was basically negative with no mass, lymphadenopathy or acute inflammatory changes and no evidence of vascular disease noted. PLAN: Plan at this point as per Dr. Nelson and Dr. Aguilar trejo and Dr. Frank Rutledge, her chronic painting trades worker in terms of determining the etiology of this particular pain and also terms of management and rectification of back pain. CONDITION: At the time of my exam she was stable and improving with still some significant discomfort in the right lower extremity from the pelvic area down.to the knee. PROGNOSIS: Obviously dependent upon ultimate diagnoses. Dictated By: SHANNA RAMIREZ/NICHO Conf#: [id number] DID#: [id number] CC: YEYO NELSON MD; SHANNA URRUTIA MD;*EndCC* MTDD
--- NOTE | 2018-10-17 10:10 | PAC ---
Date/Time of Note Date/Time of Note DATE: 10/17/18 TIME: 10:10 Post-Anesthesia Notes Post-Anesthesia Note Last documented vital signs Vital Signs Date Temp Pulse Resp B/P (MAP) Pulse Ox O2 O2 Flow FiO2 Time Delivery Rate 10/17/18 98.4 73 17 99/55 (70) 100 07:29 10/17/18 Room Air 00:59 Activity: WNL Respiratory function: WNL Cardiovascular function: WNL Mental status: Baseline Pain reasonably controlled: Yes Hydration appropriate: Yes Nausea/Vomiting absent: Yes Estevan Kim M.D. Oct 17, 2018 10:10
[2018-10-17] MEDS: OXYCODONE/ACETAMINOPHEN (5/325) TAB PO PRN ×2 (12:23→20:28)
[2018-10-18 02:45] VITALS: BP 117/61; PULSE 75; RESP 20
[2018-10-18] MEDS: OXYCODONE/ACETAMINOPHEN (5/325) TAB PO PRN ×2 (03:09→08:58)
[2018-10-18] MEDS: DIAZEPAM 5 MG TAB PO PRN ×2 (04:11→14:13)
[2018-10-18] MEDS: PANTOPRAZOLE (EC) 40 MG TAB PO SCH (05:57)
[2018-10-18 08:05] VITALS: BP 126/68; PULSE 62; RESP 18
[2018-10-18] MEDS: FAMOTIDINE 20 MG TAB PO SCH (08:53)
[2018-10-18] MEDS: PREGABALIN 75 MG CAP PO SCH (08:53)
[2018-10-18] MEDS: VITAMIN B COMPLEX/VIT C CAP PO SCH (08:59)
[2018-10-18] MEDS: BACLOFEN 10 MG TAB PO SCH ×2 (08:59→12:29)
[2018-10-18] MEDS: CYANOCOBALAMIN 500 MCG TAB PO SCH (08:59)
[2018-10-18] MEDS: OXYMETAZOLINE 0.05% 15 ML NAS SPRAY NASAL SCH (08:59)
--- NOTE | 2018-10-18 10:28 | PN ---
Date/Time of Note Date/Time of Note DATE: 10/18/18 TIME: 10:19 Assessment/Plan VTE Prophylaxis Risk score (from Ns)>0 risk: 6 SCD applied (from [facility]): Yes Pharmacological prophylaxis: NA/contraindicated Pharm contraindication: patient refusal Lines/Catheters IV Catheter Type (from Nrsg): Peripheral IV Assessment/Plan Problems: (1) Intractable pain Status: Resolved Comment: Ok for d/c from both ortho and med standpoint. (2) Bilateral leg pain Status: Acute Comment: persists but improved. Cont. current pain management (3) Urinary incontinence Status: Resolved Qualifiers: Urinary Incontinence type: unspecified incontinence Qualified Codes: R32 - Unspecified urinary incontinence (4) Diarrhea Status: Acute Comment: r/o c.diff w/ sample but this should not keep pt. in hospital. Lomotil prn and FeSO4 will help to slow flow of stool as well. (5) Anemia Status: Acute Comment: start FeSO4 325 mg tid Result Diagram: 10/18/184 10/18/18433 Results 24hrs Laboratory Tests Test 10/17/18 12:01 10/18/18 04:34 Urine Color YELLOW Urine Clarity SLIGHTLY CLOUDY A Urine pH 5.0 Urine Specific [place] 1.046 H Urine Ketones TRACE A Urine Nitrite NEGATIVE Urine Bilirubin NEGATIVE Urine Urobilinogen NEGATIVE Urine Leukocyte Esterase TRACE A Urine Microscopic RBC 3 Urine Microscopic WBC 8 H Urine Bacteria FEW A Urine Mucus FEW A Urine Hemoglobin NEGATIVE Urine Glucose NEGATIVE Urine Total Protein 1+ H White Blood Count 5.5 # Red Blood Count 3.61 L Hemoglobin 8.6 L Hematocrit 29.0 L Mean Corpuscular Volume 80.3 L Mean Corpuscular Hemoglobin 23.8 L Mean Corpuscular Hemoglobin Concent 29.7 L Red Cell Distribution Width 19.6 H Platelet Count 247 # Mean Platelet Volume 10.4 Immature Granulocytes % 0.400 Neutrophils % 61.7 Lymphocytes % 19.2 Monocytes % 14.1 H Eosinophils % 4.2 Basophils % 0.4 Nucleated Red Blood Cells % 0.0 Immature Granulocytes # 0.020 Neutrophils # 3.4 Lymphocytes # 1.1 Monocytes # 0.8 Eosinophils # 0.2 Basophils # 0.0 Nucleated Red Blood Cells # 0.0 Sodium Level 139 Potassium Level 4.0 Chloride Level 101 Carbon Dioxide Level 29 Anion Gap 9 # Blood Urea Nitrogen 10 Creatinine 0.71 Est Glomerular Filtrat Rate mL/min > 60 Glucose Level 98 # Hemoglobin A1c 5.8 Calcium Level 9.7 Total Bilirubin 0.2 Direct Bilirubin 0.00 Indirect Bilirubin 0.2 Aspartate Amino Transf (AST/SGOT) 93 H Alanine Aminotransferase (ALT/SGPT) 32 Alkaline Phosphatase 75 Total Protein 6.7 # Albumin 3.8 # Globulin 2.90 Albumin/Globulin Ratio 1.31 Subjective 24 Hr Interval Summary Constitutional: no complaints, improved Respiratory: no complaints Cardiovascular: no complaints Gastrointestinal: pain (in lower rib region, achey following cramps yesterday), diarrhea Genitourinary: no complaints Musculoskeletal: back pain, bone/joint pain (BLE, groin) Neurologic: no complaints Exam/Review of Systems Exam Vitals VS - Last 72 Hours, by Label Date Temp Pulse Resp B/P (MAP) Pulse Ox O2 O2 Flow FiO2 Time Delivery Rate 10/18/18 98.0 62 18 126/68 100 08:05 (87) 10/18/18 97.0 75 20 117/61 93 Room Air 02:45 (79) 10/17/18 99.0 80 20 101/55 97 19:25 (70) 10/17/18 97.9 77 17 97/53 (68) 100 14:32 10/17/18 98.4 73 17 99/55 (70) 100 07:29 10/17/18 98.6 80 18 113/57 98 01:27 (75) 10/17/18 79 18 95/62 (73) 96 Room Air 00:59 10/17/18 78 14 98/61 (73) 95 Room Air 00:56 10/17/18 76 20 103/62 95 Room Air 00:55 (76) 10/17/18 76 8 100/57 94 Room Air 00:53 (71) 10/17/18 76 18 109/58 95 Room Air 00:48 (75) 10/17/18 80 25 119/63 98 Room Air 00:43 (81) 10/17/18 78 11 102/65 96 Room Air 00:40 (77) 10/17/18 79 18 97/59 (72) 95 Room Air 00:35 10/17/18 78 20 93/53 (66) 95 Room Air 00:33 10/17/18 84 22 102/61 97 Room Air 00:30 (75) 10/17/18 82 19 108/67 96 Room Air 00:28 (81) 10/17/18 88 18 103/71 97 Room Air 00:23 (82) 10/17/18 98.5 88 20 103/71 97 Room Air 00:12 (82) 10/16/18 99.4 18 18 129/81 92 19:39 (97) 10/16/18 91 14 154/98 94 19:20 (116) 10/16/18 93 17 153/93 95 Room Air 18:50 (113) 10/16/18 116 18 202/95 96 Room Air 17:49 (130) 10/16/18 118 18 198/97 98 Room Air 16:54 (130) 10/16/18 98.7 140 18 209/130 99 16:00 (156) Vital Signs Date Temp Pulse Resp B/P (MAP) Pulse Ox O2 O2 Flow FiO2 Time Delivery Rate 10/18/18 98.0 62 18 126/68 100 08:05 (87) 10/18/18 Room Air 02:45 Intake and Output 10/17/18 10/17/18 10/18/18 1515:00 23:00 07:00 IntakeIntake Total 200 ml 400 ml 400 ml OutputOutput Total 800 ml BalanceBalance 200 ml 400 ml -400 ml Constitutional: alert, oriented, well developed Psych: no complaints, nl mood/affect Respiratory: clear to auscultation, normal air movement Cardiovascular: regular rate and rhythm, nl pulses; No edema, No murmurs/extra sounds, No rub Gastrointestinal: soft, nl liver, spleen, non-tender, bowel sounds; No mass, No rebound or guarding Musculoskeletal: nl extremities to inspection Extremities: normal pulses; No cyanosis, No clubbing, No edema Neurological: 1ST PRESSMAN II-XII intact, nl mental status, nl speech, nl strength Results Results 24hrs Laboratory Tests Test 10/17/18 12:01 10/18/18 04:34 Urine Color YELLOW Urine Clarity SLIGHTLY CLOUDY A Urine pH 5.0 Urine Specific [place] 1.046 H Urine Ketones TRACE A Urine Nitrite NEGATIVE Urine Bilirubin NEGATIVE Urine Urobilinogen NEGATIVE Urine Leukocyte Esterase TRACE A Urine Microscopic RBC 3 Urine Microscopic WBC 8 H Urine Bacteria FEW A Urine Mucus FEW A Urine Hemoglobin NEGATIVE Urine Glucose NEGATIVE Urine Total Protein 1+ H White Blood Count 5.5 # Red Blood Count 3.61 L Hemoglobin 8.6 L Hematocrit 29.0 L Mean Corpuscular Volume 80.3 L Mean Corpuscular Hemoglobin 23.8 L Mean Corpuscular Hemoglobin Concent 29.7 L Red Cell Distribution Width 19.6 H Platelet Count 247 # Mean Platelet Volume 10.4 Immature Granulocytes % 0.400 Neutrophils % 61.7 Lymphocytes % 19.2 Monocytes % 14.1 H Eosinophils % 4.2 Basophils % 0.4 Nucleated Red Blood Cells % 0.0 Immature Granulocytes # 0.020 Neutrophils # 3.4 Lymphocytes # 1.1 Monocytes # 0.8 Eosinophils # 0.2 Basophils # 0.0 Nucleated Red Blood Cells # 0.0 Sodium Level 139 Potassium Level 4.0 Chloride Level 101 Carbon Dioxide Level 29 Anion Gap 9 # Blood Urea Nitrogen 10 Creatinine 0.71 Est Glomerular Filtrat Rate mL/min > 60 Glucose Level 98 # Hemoglobin A1c 5.8 Calcium Level 9.7 Total Bilirubin 0.2 Direct Bilirubin 0.00 Indirect Bilirubin 0.2 Aspartate Amino Transf (AST/SGOT) 93 H Alanine Aminotransferase (ALT/SGPT) 32 Alkaline Phosphatase 75 Total Protein 6.7 # Albumin 3.8 # Globulin 2.90 Albumin/Globulin Ratio 1.31 Medications Medication Current Medications Diazepam (Valium) 5 mg Q4 PRN IV MUSCLE SPASMS Last administered on 10/16/18at 20:31; Admin Dose 5 MG; Start 10/16/18 at 20:30 Zolpidem Tartrate (Ambien) 10 mg HS PRN PO INSOMNIA; Start 10/16/18 at 20:30 Baclofen (Lioresal) 10 mg TID PO Last administered on 10/18/18at 08:59; Admin Dose 10 MG; Start 10/16/18 at 21:00 Lactated Ringer's 1,000 ml @ 0 mls/hr Q0M IV Last administered on 10/16/18at 20:55; Admin Dose 20 MLS/HR; Start 10/16/18 at 21:00 Oxymetazoline HCl (Afrin [place]) 2 spray BID NASAL Last administered on 10/18/18at 08:59; Admin Dose 2 SPRAY; Start 10/17/18 at 01:00 IV Flush (NS 3 ml) 3 ml PER PROTOCOL IV ; Start 10/17/18 at 02:00 Oxycodone/ Acetaminophen (Percocet (5/ 325)) 2 tab Q6H PRN PO .SEVERE PAIN 7-10 Last administered on 10/18/18 08:58; Admin Dose 2 TAB; Start 10/17/18 at 02:00 Morphine Sulfate (morphine) 2 mg Q4H PRN IV .SEVERE PAIN 7-10 Last administered on 10/17/18 19:36; Admin Dose 2 MG; Start 10/17/18 at 02:00 Docusate Sodium (Colace) 100 mg Q12H PRN PO .CONSTIPATION; Start 10/17/18 at 02:00 Famotidine (Pepcid) 20 mg Q12 PO Last administered on 10/18/18 08:53; Admin Dose 20 MG; Start 10/17/18 at 09:00 Cyanocobalamin (Vitamin B12) 1,500 mcg DAILY PO Last administered on 10/18/18 08:59; Admin Dose 1,500 MCG; Start 10/17/18 at 09:00 Diazepam (Valium) 5 mg Q8 PRN PO ANXIETY Last administered on 10/18/18 04:11; Admin Dose 5 MG; Start 10/17/18 at 02:00 Acetaminophen/ Hydrocodone Bitart ([place] (10/325)) 1 tab Q4 PRN PO PAIN; Start 10/17/18 at 02:00 Ondansetron HCl (Zofran Tab) 4 mg Q8 PRN PO NAUSEA AND/OR VOMITING; Start 10/17/18 at 02:00 Pregabalin (Lyrica) 75 mg BID PO Last administered on 10/18/18 08:53; Admin Dose 75 MG; Start 10/17/18 at 09:00 Vitamin B Complex/ Vitamin C (Ber[place]) 1 cap DAILY PO Last administered on 10/18/18 08:59; Admin Dose 1 CAP; Start 10/17/18 at 09:00 Pantoprazole (Protonix Tab) 40 mg DAILY@06 PO Last administered on 10/17/18 05:12; Admin Dose 40 MG; Start 10/17/18 at 06:00 EVA VOSS MD Oct 18, 2018 10:28
--- NOTE | 2018-10-18 10:29 | PDOCDIS ---
Discharge Instructions DIAGNOSIS Discharge Diagnosis intractable pain, resolved CONDITION [id number] Patient Condition: [id number] Good HOME CARE INSTRUCTIONS: [id number] Diet Instructions: Mamad0s Regular ACTIVITY: [id number] Activity Restrictions: [id number] Slowly Increase Activity [id number] Bathing Restrictions: [id number] Shower FOLLOW UP/APPOINTMENTS Follow-up Plan f/ u w/ Dr. Nelson as scheduled EVA VOSS MD Oct 18, 2018 10:29
[2018-10-18] MEDS ORDERED: DIPHENOXYLATE/ATROPINE TAB PO PRN (10:30)
[2018-10-18] MEDS ORDERED: BACL10TA PO (10:31)
[2018-10-18] MEDS ORDERED: FER325 PO (10:31)
[2018-10-18] MEDS ORDERED: DIPH1TAB25 PO (10:31)
--- NOTE | 2018-10-18 10:40 | DS ---
Date/Time of Note Date/Time of Note DATE: 10/18/18 TIME: 10:33 Discharge Summary Admission/Discharge Info Admit Date/Time Oct 16, 2018 at 16:34 Discharge Date/Time 10/17/18 @ 1200 Discharge Diagnosis intractable pain, resolved Patient Condition: Good Consults Omar: ortho Procedures Thoracic and lumbar MRI w/ conscious sedation: Postsurgical changes at the T11 level status post granuloma removal with small hematoma at the resection site. There is no abnormal enhancement of the cauda equina. Intrathecal catheter identified anterior and lateral to the conus and cauda equina on the left at the L1-L2 level. Mild spinal canal narrowing at the T11-T12 level secondary to adjacent postsurgical changes in the dorsal soft tissues and likely small seroma formation adjacent to the ligamentum flavum. Multilevel degenerative changes of the thoracic and lumbar spine. Moderate spinal canal narrowing at the L2-L3 level. Foraminal narrowing is most prominent on the left at the L4-L5 level. Abdominal Angiography: Vascular: 1. Normal caliber abdominal aorta with no dissection. No significant atherosclerotic changes or stenosis. Right le. No significant aortoiliac disease. No aortic or iliac dissection. 2. No s ignificant femoral popliteal disease. Mid aspect of the popliteal artery is not well visualized due to knee prosthesis. 3. Patent runoff vessels proximally. The distal aspects of the vessels are not well visualized due to venous contamination. Left le. No significant aortoiliac disease. 2. No significant femoral popliteal disease. 3. Patent runoff vessels proximally. Lower abdomen/pelvis: 1. No mass, lymphadenopathy or acute inflammatory changes. Hx of Present Illness The patient had recently been discharged on 10/11/2018 from [facility] after having some back surgery, she was doing relatively well. Her pain pump had been turned off and was going to be restarted and repositioned. After restarting, she started experiencing excruciating muscle spasm as well as pain in her lower extremity primarily on the right side with inability to ambulate and the patient was immediately taken to the emergency room where evaluation was undertaken to rule out acute cauda equina syndrome as well as other possible etiologies for the sudden turn and she was admitted for further treatment and evaluation. Hospital Course Pt. had MRI under anesthesia which showed nothing more than post-operative changes. Pt. had angiography ruling out vascular disease. Baclofen was added and pt. had improvement in her muscle spasms. Has developed diarrhea which we will test for c.diff. However, does not need to stay in hospital for this. Can be treated as outpt. if found to be positive. Has been found to be anemic. Will add FeSO4 and lomotil. Ok for d/c home from med standpoint. Home Meds Active Scripts Ferrous Sulfate* (Ferrous Sulfate*) 325 Mg Tabec, 325 MG PO TID for 30 Days, #90 TAB 3 Refills Prov:EVA VOSS MD 10/18/18 Baclofen* (Baclofen*) 10 Mg Tablet, 10 MG PO TID for 30 Days, #90 TAB 0 Refills Prov:EVA VOSS MD 10/18/18 Reported Medications Pregabalin* (Lyrica*) 75 Mg Capsule, 75 MG PO BID for 3 tabs MDD 3 tabs bid, CAP 10/06/18 Esomeprazole Mag Trihydrate (Nexium) 20 Mg Capsule.dr, 20 MG PO DAILY, #30 CAP 10/06/18 Vitamin B Complex* (Vitamin B Complex*) 1 Each Tablet, 1 TAB PO DAILY, TAB 07/16/17 Ubidecarenone (Coq-10) 100 Mg Capsule, 400 MG PO DAILY, CAP 07/16/17 Cyanocobalamin* (Vitamin B12*) 500 Mcg Tab, 1500 MCG PO DAILY, TAB 07/16/17 Ondansetron Hcl* (Zofran*) 4 Mg Tablet, 4 MG PO Q8 PRN for NAUSEA AND OR VOMITING, TAB 07/16/17 Hydrocodone/Acetaminophen ([place] 10-325 Tablet) 1 Each Tablet, 1-2 EACH PO Q4 PRN for PAIN, TAB 07/16/17 Diazepam* (Diazepam*) 5 Mg Tablet, 5 MG PO Q8 PRN for ANXIETY, TAB 07/16/17 Temazepam* (Restoril*) 15 Mg Capsule, 15 MG PO HS PRN for INSOMNIA, CAP 07/16/17 Follow-up Plan f/ u w/ Dr. Nelson as scheduled Primary Care Provider Not On Staff Doctor Time spent on discharge: > 30 minutes Pending Labs Laboratory Tests Test 10/17/18 12:01 10/18/18 04:34 Urine Color YELLOW (YELLOW) Urine Clarity SLIGHTLY CLOUDY (CLEAR) Urine pH 5.0 (5.0-9.0) Urine Specific [place] 1.046 (1.003-1.030) Urine Ketones TRACE mg/dL (NEGATIVE) Urine Nitrite NEGATIVE mg/dL (NEGATIVE) Urine Bilirubin NEGATIVE mg/dL (NEGATIVE) Urine Urobilinogen NEGATIVE mg/dL (NEGATIVE) Urine Leukocyte Esterase TRACE [place]/ul (NEGATIVE) Urine Microscopic RBC 3 /HPF (0-5) Urine Microscopic WBC 8 /HPF (0-5) Urine Bacteria FEW /HPF (NONE SEEN) Urine Mucus FEW /HPF (NONE SEEN) Urine Hemoglobin NEGATIVE mg/dL (NEGATIVE) Urine Glucose NEGATIVE mg/dL (NEGATIVE) Urine Total Protein 1+ mg/dl (NEGATIVE) White Blood Count 5.5 10^3/ul (4.8-10.8) Red Blood Count 3.61 10^6/ul (4.20-5.40) Hemoglobin 8.6 g/dl (12.0-16.0) Hematocrit 29.0 % (37.0-47.0) Mean Corpuscular Volume 80.3 fl (82.0-101.0) Mean Corpuscular 23.8 pg (29.0-33.0) Hemoglobin Mean Corpuscular 29.7 g/dl (32.0-37.0) Hemoglobin Concent Red Cell Distribution 19.6 % (11.5-14.5) Width Platelet Count 247 10^3/UL (140-415) Mean Platelet Volume 10.4 fl (7.4-10.4) Immature Granulocytes % 0.400 % (0.001-0.429) Neutrophils % 61.7 % (39.0-77.0) Lymphocytes % 19.2 % (15.0-51.0) Monocytes % 14.1 % (0.0-11.0) Eosinophils % 4.2 % (0.0-7.0) Basophils % 0.4 % (0.0-2.0) Nucleated Red Blood Cells 0.0 /100WBC (0.0-0.0) % Immature Granulocytes # 0.020 10^3/ul (0.0-0.031) Neutrophils # 3.4 10^3/ul (1.6-7.5) Lymphocytes # 1.1 10^3/ul (0.8-2.9) Monocytes # 0.8 10^3/ul (0.3-0.9) Eosinophils # 0.2 10^3/ul (0.0-0.5) Basophils # 0.0 10^3/ul (0.0-0.1) Nucleated Red Blood Cells 0.0 10^3/ul (0.0-0.0) # Sodium Level 139 mmol/L (135-144) Potassium Level 4.0 mmol/L (3.5-5.1) Chloride Level 101 mmol/L (97-110) Carbon Dioxide Level 29 mmol/L (21-31) Anion Gap 9 (5-13) Blood Urea Nitrogen 10 mg/dl (7-20) Creatinine 0.71 mg/dl (0.44-1.00) Est Glomerular Filtrat > 60 mL/min (>60) Rate mL/min Glucose Level 98 mg/dl (70-220) Hemoglobin A1c 5.8 % (0-5.9) Calcium Level 9.7 mg/dl (8.4-10.2) Total Bilirubin 0.2 mg/dl (0.2-1.3) Direct Bilirubin 0.00 mg/dl (0.00-0.20) Indirect Bilirubin 0.2 mg/dl (0-1.1) Aspartate Amino 93 IU/L (15-46) Transf (AST/SGOT) Alanine 32 IU/L (13-69) Aminotransferase (ALT/SGPT ) Alkaline Phosphatase 75 IU/L (42-121) Total Protein 6.7 g/dl (6.1-8.1) Albumin 3.8 g/dl (3.3-4.9) Globulin 2.90 g/dl (1.3-3.2) Albumin/Globulin Ratio 1.31 EVA VOSS MD Oct 18, 2018 10:40
[2018-10-18] MEDS ORDERED: FERROUS SULFATE (EC) 325 MG TAB PO SCH (13:00)
[2018-10-18 13:46] VITALS: BP 117/64; PULSE 75; RESP 16
[2018-10-18] MEDS: morphine 2 MG INJ IV PRN (14:01)
== END 2018-10-18 15:20 | disposition home or self-care (01) ==
LOC: E/R 15:23 → MS1 16:34
PROVIDERS: ADMIT Orthopaedic Surgery; ATTEND Orthopaedic Surgery
DX: G89.4 Chronic pain syndrome (principal); M79.604 Pain in right leg; M79.605 Pain in left leg; M32.9 Systemic lupus erythematosus, unspecified; R32 Unspecified urinary incontinence; R19.7 Diarrhea, unspecified; D64.9 Anemia, unspecified; K21.9 Gastro-esophageal reflux disease without esophagitis
CPT/HCPCS: 36415; 72157; 72158; 75635; 80053; 81001; 83036; 85025; 85610; 85730; 87081; 87086; 96374; 97110; 97116; 97161; 97530; 99285; G0378; J1170; J2250; J2270; J3360; J2370; J2405